=== PATIENT | female | born 1950 | race Caucasian/White ===

== ENCOUNTER 2018-12-19 20:08 | Inpatient (IN) | payer MEDICARE, OTHER | END 2018-12-28 19:10 | disposition home or self-care (01) | LOC: TELE-WESTW 20:08 | DX: I63.40 Cerebral infarction due to embolism of unspecified cerebral artery (principal); I26.99 Other pulmonary embolism without acute cor pulmonale; J96.91 Respiratory failure, unspecified with hypoxia; K90.9 Intestinal malabsorption, unspecified; R60.1 Generalized edema; E77.8 Other disorders of glycoprotein metabolism; E88.09 Other disorders of plasma-protein metabolism, not elsewhere classified; K27.9 Peptic ulcer, site unspecified, unspecified as acute or chronic, without hemorrhage or perforation; D50.9 Iron deficiency anemia, unspecified; I50.9 Heart failure, unspecified; I11.0 Hypertensive heart disease with heart failure; E66.09 Other obesity due to excess calories ==

== ENCOUNTER 2019-01-24 21:55 | Inpatient (IN) | payer MEDICARE, OTHER ==
[~2019-01-24] VITALS: Ht 168.9 cm; Wt 48.9 kg
[~2019-01-24 21:55] MED LIST: FERR-20 PO; GABA600T PO; METO-281 PO; ONDA4TAB5 PO; OXY5T PO; PANT40TA2 PO; TIZA4CAP PO; TORS20TA20 PO
[2019-01-24] MEDS ORDERED: ACETAMINOPHEN 325 MG TAB PO PRN (22:00)
[2019-01-24] MEDS ORDERED: MORPHINE SULF INJ 2 MG/ML SYRINGE 1ML IV PRN (22:00)
[2019-01-24] MEDS ORDERED: TEMAZEPAM 15 MG CAP PO PRN (22:00)
[2019-01-24] MEDS ORDERED: GABAPENTIN PO SCH (22:00)
[2019-01-24] MEDS ORDERED: DOCUSATE SOD 100 MG CAP PO PRN (22:00)
[2019-01-24] MEDS ORDERED: POTASSIUM CHL 20MEQ/100ML 100 ML IV PRN (22:00)
[2019-01-24] MEDS ORDERED: ALBUMIN 25% 50 ML IV ONE (22:00)
[2019-01-24] MEDS ORDERED: ALUM & MAG HYDROX-SIMETH LIQ(MAALOX) 30 ML PO PRN (22:00)
[2019-01-24] MEDS ORDERED: NITROGLYCERIN 0.4 MG SL TAB SL PRN (22:00)
--- NOTE | 2019-01-24 22:20 | NUR ---
Direct Admit Note JANNYKARINE admitted to Telemetry unit as a direct admit per MD order. Patient oriented to primary RN, unit, room, bed, and unit policies regarding patient care and visiting hours. Patient now on continuous telemetry monitoring, tele box #[id number] and telemetry reading on arrival to unit is Sinus rhythm 64. Patient weighed by bedscale and encouraged to call if they need something. All questions and concerns addressed, patient verbalized understanding. MD Nance at the nurses station aware of patient's arrival and admit orders received.
[2019-01-24 23:00] VITALS: BP 95/59
--- NOTE | 2019-01-24 23:00 | NUR ---
MRSA SWAB DONE AND SENT TO LAB VIA BULLET.
[2019-01-24 23:01] LABS: Basophils # (auto) 0.1 uL; Basophils % (auto) 1.1 % (0.0-2.0); Eosinophils # (auto) 0.2 uL; Eosinophils % (auto) 3.7 % (0.0-7.0); Hematocrit 29.5 % (36.0-46.0); Hemoglobin 9.4 g/dL (12.2-16.2); Lymphocytes # (auto) 1.2 uL; Lymphocytes % (auto) 19.9 % (10.0-50.0); Mean Corpuscular Hemoglobin 28.8 pg (28.0-32.0); Mean Corpuscular Volume 89.8 fL (80.0-100.0); Monocytes # (auto) 0.8 uL; Monocytes % (auto) 12.6 % (0.0-12.0); Neutrophils # (auto) 3.8 uL; Neutrophils % (auto) 62.7 % (37.0-80.0); Nucleated Red Blood Cells % 0.1 %; Platelet Count (auto) 329 10^3/uL (140-450); Red Blood Cells 3.28 10^6/uL (4.0-5.20); Red Cell Distribution Width 15.5 % (11.8-14.3); White Blood Cell 6.1 10^3/uL (4.4-10.8)
[2019-01-24 23:08] VITALS: BP 82/53
[2019-01-24 23:14] LABS: Anion Gap 5 (5-15); BUN/Creatinine Ratio 40.4; Blood Urea Nitrogen 19 mg/dL (7-18); Calcium 7.1 mg/dL (8.5-10.1); Carbon Dioxide 31 mmol/L (21-32); Chloride 101 mmol/L (98-107); GFR African American 171 mL/min; GFR Non-African American 141 mL/min; Glucose 90 mg/dL (74-106); Potassium 3.4 mmol/L (3.5-5.1); Sodium 137 mmol/L (136-145)
--- NOTE | 2019-01-24 23:15 | NUR ---
Patient's BP at 82/53 HR 69. Pt's respiration even and unlabored. No non verbal cues to pain such as grimacing, moaning and crying, however, patient is requesting for Dilaudid for "severe pain to thoracic and cervical area" Informed patient that per Dr. Nance's notes, only able to administer Dilaudid if SBP is >90. Per patient "My body is used to it even if my blood pressure is low" Educated patient on risk and benefits and nurse following on Dr's orders. Kept patient's BLE slightly elevated, assisted in repositioning and will recheck blood pressure at a later time.
--- NOTE | 2019-01-24 23:30 | NUR ---
Patient requesting again to have her Dilaudid at this time. BP at 95/48. Informed patient, I will recheck BP again after 30 minutes or less to be safe. Per patient "Why do you have to recheck it is already more than 90, you can give me my Dilaudid now?" Rechecked BP at 85/50. Patient repositioning self in the bed and transferred to bedside commode with sba, no facial grimacing or guarding noted and observed. Informed patient there is a routine Oxycodone medication at 0000h to help with her pain. Patient verbalized understanding. Will continue to monitor.
[2019-01-24] MEDS: SODIUM CHLOR 0.9% PF (SALINE LOCK) 10ML VIAL/SYR IV SCH (23:55)
[2019-01-25] MEDS ORDERED: ALBUMIN 25% 50 ML IV SCH
[2019-01-25] MEDS: OXYCODONE HCL 5MG TAB PO SCH ×4 (00:54→18:09)
--- NOTE | 2019-01-25 03:23 | NUR ---
PT'S BP 132/72 COMPLAINING OF BACK AND NECK PAIN. WILL ADMINISTER PAIN MEDICATION REQUESTED AND ORDERED.
[2019-01-25] MEDS: HYDROmorphone HCL 2 MG/ML VL IV PRN ×5 (03:25→21:42)
[2019-01-25 05:00] VITALS: BP 138/69
[2019-01-25] MEDS: GABAPENTIN 300 MG CAP PO SCH ×3 (05:59→21:42)
[2019-01-25] MEDS: SODIUM CHLOR 0.9% PF (SALINE LOCK) 10ML VIAL/SYR IV SCH ×3 (06:00→21:55)
[2019-01-25] MEDS: FUROSEMIDE 40 MG/4 ML VIAL IV SCH ×2 (06:21→18:07)
--- NOTE | 2019-01-25 06:37 | NUR ---
PRILOSEC NOT AVAILABLE ON THE FLOOR, CALLED FRANCISCO/PHARMACY. PER FRANCISCO, WILL SEND MEDICATION VIA BULLET IN A FEW MINUTES.
[2019-01-25] MEDS: METOCLOPRAMIDE HCL 5MG/ml INJ 2ml VIAL IV SCH ×3 (07:08→17:23)
[2019-01-25] MEDS: OMEPRAZOLE 20MG/10ML ORAL SUSP PO SCH (07:09)
[2019-01-25] MEDS ORDERED: PATIENTS OWN MEDICATION (Ferrous Sulfate 325 MG) PO SCH (08:00)
[2019-01-25] MEDS: FERROUS SULFATE 325 MG TAB PO SCH ×2 (08:42→18:10)
[2019-01-25 09:00] VITALS: BP 120/71
[2019-01-25] MEDS: ALBUMIN 25% 50 ML IV SCH ×2 (09:05→16:16)
[2019-01-25] MEDS: ONDANSETRON HCL 4 MG/2 ML VIAL IV PRN ×2 (11:17→18:52)
[2019-01-25 14:00] VITALS: BP 134/76
[2019-01-25] MEDS: TIZANIDINE 4 MG PO SCH ×2 (14:00→21:56)
[2019-01-25 17:54] VITALS: BP 127/67
--- NOTE | 2019-01-25 19:30 | NUR ---
Opening Shift Note Assumed care of patient, awake and alert. Patient is currently on room air with No S/S of distress/SOB. Reports 7/10 pain to upper back and neck. Pain management options discussed with patient. Instructed on POC and to call for assist PRN, will continue to monitor for changes Q1hr and PRN.
[2019-01-25 22:00] VITALS: BP 157/83
[2019-01-26] VITALS (8 sets, daily range): BP systolic 121–133; BP diastolic 64–84
[2019-01-26] MEDS: OXYCODONE HCL 5MG TAB PO SCH ×4 (00:14→18:26)
[2019-01-26] MEDS: ALBUMIN 25% 50 ML IV SCH (00:22)
[2019-01-26] MEDS: ONDANSETRON HCL 4 MG/2 ML VIAL IV PRN ×3 (01:52→22:08)
[2019-01-26] MEDS: HYDROmorphone HCL 2 MG/ML VL IV PRN ×5 (01:53→22:09)
[2019-01-26] MEDS: TIZANIDINE 4 MG PO SCH ×3 (05:30→21:51)
[2019-01-26 05:57] LABS: Basophils # (auto) 0 uL; Eosinophils # (auto) 0.1 uL; Hemoglobin 8.4 g/dL (12.2-16.2); Mean Corpuscular Hgb Conc. 32.2 g/dL (32.0-36.0); Monocytes # (auto) 0.7 uL
[2019-01-26] MEDS: OMEPRAZOLE 20MG/10ML ORAL SUSP PO SCH ×2 (06:00→06:47)
[2019-01-26 06:02] LABS: Basophils % (auto) 0.9 % (0.0-2.0); Eosinophils % (auto) 1.8 % (0.0-7.0); Hematocrit 26.1 % (36.0-46.0); Lymphocytes # (auto) 0.9 uL; Lymphocytes % (auto) 17.4 % (10.0-50.0); Mean Corpuscular Hemoglobin 28.7 pg (28.0-32.0); Monocytes % (auto) 14.6 % (0.0-12.0); Neutrophils # (auto) 3.3 uL; Neutrophils % (auto) 65.3 % (37.0-80.0); Nucleated Red Blood Cells % 0.1 %; Platelet Count (auto) 309 10^3/uL (140-450); Red Blood Cells 2.94 10^6/uL (4.0-5.20); Red Cell Distribution Width 15.3 % (11.8-14.3)
[2019-01-26] MEDS: FUROSEMIDE 40 MG/4 ML VIAL IV SCH ×2 (06:08→18:25)
[2019-01-26] MEDS: SODIUM CHLOR 0.9% PF (SALINE LOCK) 10ML VIAL/SYR IV SCH ×3 (06:08→22:16)
[2019-01-26] MEDS: GABAPENTIN 300 MG CAP PO SCH ×3 (06:09→22:10)
[2019-01-26 06:20] LABS: Chloride 106 mmol/L (98-107); Potassium 3.9 mmol/L (3.5-5.1); Sodium 141 mmol/L (136-145)
[2019-01-26 06:26] LABS: Alanine Aminotransferase 15 U/L (13-56); Albumin 1.9 g/dL (3.4-5.0); Alkaline Phosphatase 61 U/L (45-117); Anion Gap 7 (5-15); Aspartate Aminotransferase 13 U/L (15-37); BUN/Creatinine Ratio 26.5; Bilirubin, Total < 0.1 mg/dL (0.2-1.0); Blood Urea Nitrogen 13 mg/dL (7-18); Calcium 7.5 mg/dL (8.5-10.1); Carbon Dioxide 28 mmol/L (21-32); GFR African American 162 mL/min; GFR Non-African American 134 mL/min; Glucose 93 mg/dL (74-106); Total Protein 3.9 g/dL (6.4-8.2)
[2019-01-26] MEDS: METOCLOPRAMIDE HCL 5MG/ml INJ 2ml VIAL IV SCH ×3 (06:48→17:54)
[2019-01-26] MEDS: FERROUS SULFATE 325 MG TAB PO SCH ×2 (08:00→18:11)
--- NOTE | 2019-01-26 19:45 | NUR ---
OPENING SHIFT NOTE Assumed care of patient. A&O x4. Currently on room air with no s/s of SOB or distress. Patient reports 6/10 pain at this time, which she states is tolerable for her. Patient ambulates independently to the bedside commode. POC discussed with patient, who verbalizes understanding. Bed left in low locked position and side rails up x2. Call gilmore is within reach. Patient encouraged to call for assistance when needed. Will continue to monitor PRN.
[2019-01-26] MEDS: FAMOTIDINE 20 MG TAB PO SCH (22:09)
[2019-01-27] MEDS: OXYCODONE HCL 5MG TAB PO PRN ×4 (00:37→21:16)
[2019-01-27] MEDS: HYDROmorphone HCL 2 MG/ML VL IV PRN ×4 (02:20→19:51)
[2019-01-27] MEDS: ONDANSETRON HCL 4 MG/2 ML VIAL IV PRN ×4 (02:20→19:51)
[2019-01-27 05:00] VITALS: BP 106/59
[2019-01-27] MEDS: TIZANIDINE 4 MG PO SCH ×3 (06:00→21:40)
[2019-01-27] MEDS: GABAPENTIN 300 MG CAP PO SCH ×3 (06:07→21:16)
[2019-01-27] MEDS: FUROSEMIDE 40 MG/4 ML VIAL IV SCH ×2 (06:08→17:58)
[2019-01-27] MEDS: SODIUM CHLOR 0.9% PF (SALINE LOCK) 10ML VIAL/SYR IV SCH ×3 (06:19→21:17)
[2019-01-27] MEDS: METOCLOPRAMIDE HCL 5MG/ml INJ 2ml VIAL IV SCH ×3 (06:25→17:57)
--- NOTE | 2019-01-27 08:00 | NUR ---
Opening Shift Note Assumed care of patient, awake and alert. No S/S of distress/SOB. Patient has chronic pain. Instructed on POC and to call for assist PRN, will continue to monitor for changes Q1hr and PRN.
[2019-01-27] MEDS: FERROUS SULFATE 325 MG TAB PO SCH ×2 (08:11→17:58)
[2019-01-27 08:34] VITALS: BP 109/76
[2019-01-27] MEDS: FAMOTIDINE 20 MG TAB PO SCH ×2 (10:27→21:15)
--- NOTE | 2019-01-27 11:07 | NUR ---
Nutrition Assessment Notes please see attached link for complete assessment Est. Needs BW [id number] kcal (25-30 kcal/kgBW), 53-69 gms pro (1.0-1.3 gms/kgBW). Will continue to monitor pertinent labs and reassess nutrient need prn Addendum: 01/27/19 at [address] Amended: Links added.
[2019-01-27 12:38] VITALS: BP 123/61
[2019-01-27 16:13] VITALS: BP 123/73
--- NOTE | 2019-01-27 19:30 | NUR ---
Opening Shift Note Assumed care of patient, awake and alert. No S/S of distress/SOB but c/o 8/10 pain, will medicate per md order. Bed locked in lowest position, side rails upx2, call light within reach. Instructed on POC and to call for assist PRN, will continue to monitor for changes Q1hr and PRN.
[2019-01-27 22:06] VITALS: BP 137/68
[2019-01-28] VITALS (10 sets, daily range): BP systolic 106–123; BP diastolic 59–83
[2019-01-28] MEDS: HYDROmorphone HCL 2 MG/ML VL IV PRN ×6 (00:02→20:02)
[2019-01-28] MEDS: ONDANSETRON HCL 4 MG/2 ML VIAL IV PRN ×6 (00:02→20:02)
--- NOTE | 2019-01-28 02:30 | NUR ---
DR. SU AT BEDSIDE DISCUSSING POC WITH PATIENT.
[2019-01-28] MEDS: OXYCODONE HCL 5MG TAB PO PRN ×3 (03:23→17:11)
[2019-01-28] MEDS: TIZANIDINE 4 MG PO SCH ×3 (06:00→21:36)
[2019-01-28] MEDS: FUROSEMIDE 40 MG/4 ML VIAL IV SCH ×2 (06:17→18:09)
[2019-01-28] MEDS: SODIUM CHLOR 0.9% PF (SALINE LOCK) 10ML VIAL/SYR IV SCH ×3 (06:17→21:36)
[2019-01-28] MEDS: GABAPENTIN 300 MG CAP PO SCH ×3 (06:17→21:36)
[2019-01-28] MEDS: METOCLOPRAMIDE HCL 5MG/ml INJ 2ml VIAL IV SCH ×3 (06:17→17:40)
[2019-01-28 06:44] LABS: Basophils # (auto) 0.1 uL; Eosinophils # (auto) 0.3 uL; Hemoglobin 8.3 g/dL (12.2-16.2); Lymphocytes # (auto) 0.9 uL; Mean Corpuscular Volume 89.6 fL (80.0-100.0); Monocytes # (auto) 0.8 uL; White Blood Cell 5.6 10^3/uL (4.4-10.8)
[2019-01-28 06:48] LABS: Basophils % (auto) 1.1 % (0.0-2.0); Eosinophils % (auto) 5.7 % (0.0-7.0); Hematocrit 25.6 % (36.0-46.0); Lymphocytes % (auto) 15.9 % (10.0-50.0); Mean Corpuscular Hemoglobin 29.1 pg (28.0-32.0); Mean Corpuscular Hgb Conc. 32.4 g/dL (32.0-36.0); Monocytes % (auto) 14.2 % (0.0-12.0); Neutrophils # (auto) 3.5 uL; Neutrophils % (auto) 63.1 % (37.0-80.0); Platelet Count (auto) 268 10^3/uL (140-450); Red Blood Cells 2.85 10^6/uL (4.0-5.20); Red Cell Distribution Width 15.8 % (11.8-14.3)
[2019-01-28] MEDS: FERROUS SULFATE 325 MG TAB PO SCH ×2 (08:57→17:11)
[2019-01-28] MEDS: FAMOTIDINE 20 MG TAB PO SCH ×2 (08:57→21:36)
[2019-01-28] MEDS: CYCLOBENZAPRINE HCL 10 MG TAB PO PRN ×2 (10:16→17:11)
--- NOTE | 2019-01-28 15:30 | NUR ---
Dr Nance at bedside Explaining risks and benefits of 1 unit of blood transfusion. Patient verbalizes understanding.
--- NOTE | 2019-01-28 19:30 | NUR ---
Opening Shift Note Assumed care of patient, awake and alert. No S/S of distress/SOB or pain. Patient transfusing 1 unit of blood at 125 ml/hr. Bed locked in lowest position, side rails upx2, call light within reach. Instructed on POC and to call for assist PRN, will continue to monitor for changes Q1hr and PRN.
--- NOTE | 2019-01-28 21:50 | NUR ---
BLOOD TRANSFUSION COMPLETE VITALS: 98.5, HR 77, O2 93%, RR 18, BP 107/68. PATIENT TOLERATED WELL, NO SIGNS OR REACTION. WILL CONTINUE TO MONITOR.
[2019-01-29] MEDS: OXYCODONE HCL 5MG TAB PO PRN ×3 (00:48→14:29)
[2019-01-29] MEDS: HYDROmorphone HCL 2 MG/ML VL IV PRN ×4 (04:29→16:27)
[2019-01-29] MEDS: ONDANSETRON HCL 4 MG/2 ML VIAL IV PRN ×4 (04:30→16:26)
[2019-01-29 04:50] VITALS: BP 112/66
[2019-01-29] MEDS: TIZANIDINE 4 MG PO SCH ×2 (06:00→14:00)
[2019-01-29] MEDS: FUROSEMIDE 40 MG/4 ML VIAL IV SCH ×2 (06:21→17:49)
[2019-01-29] MEDS: METOCLOPRAMIDE HCL 5MG/ml INJ 2ml VIAL IV SCH ×3 (06:22→17:49)
[2019-01-29] MEDS: SODIUM CHLOR 0.9% PF (SALINE LOCK) 10ML VIAL/SYR IV SCH ×2 (06:22→14:30)
[2019-01-29] MEDS: GABAPENTIN 300 MG CAP PO SCH ×2 (06:22→14:28)
[2019-01-29 07:20] LABS: Alanine Aminotransferase 13 U/L (13-56); Albumin 1.4 g/dL (3.4-5.0); Anion Gap 10 (5-15); Aspartate Aminotransferase 11 U/L (15-37); Blood Urea Nitrogen 18 mg/dL (7-18); Calcium 7.1 mg/dL (8.5-10.1); Carbon Dioxide 27 mmol/L (21-32); Chloride 106 mmol/L (98-107); GFR African American 179 mL/min; GFR Non-African American 148 mL/min; Glucose 87 mg/dL (74-106); Potassium 3.7 mmol/L (3.5-5.1); Sodium 143 mmol/L (136-145)
[2019-01-29 07:22] LABS: Alkaline Phosphatase 62 U/L (45-117); Bilirubin, Total 0.2 mg/dL (0.2-1.0); Total Protein 3.9 g/dL (6.4-8.2)
--- NOTE | 2019-01-29 07:48 | NUR ---
Opening Shift Note Assumed care of patient, awake and alert. No S/S of distress/SOB or pain. Instructed on POC and to call for assist PRN, will continue to monitor for changes Q1hr and PRN.
[2019-01-29 08:30] VITALS: BP 122/77
[2019-01-29] MEDS: FERROUS SULFATE 325 MG TAB PO SCH ×2 (08:56→17:50)
[2019-01-29] MEDS: FAMOTIDINE 20 MG TAB PO SCH (10:07)
[2019-01-29] MEDS: CYCLOBENZAPRINE HCL 10 MG TAB PO PRN (10:07)
[2019-01-29 10:24] LABS: Alanine Aminotransferase 15 U/L (13-56); Albumin 1.5 g/dL (3.4-5.0); Anion Gap 9 (5-15); Aspartate Aminotransferase 10 U/L (15-37); BUN/Creatinine Ratio 36.2; Blood Urea Nitrogen 17 mg/dL (7-18); Calcium 7.2 mg/dL (8.5-10.1); Carbon Dioxide 28 mmol/L (21-32); Chloride 103 mmol/L (98-107); GFR African American 171 mL/min; GFR Non-African American 141 mL/min; Glucose 105 mg/dL (74-106); Potassium 3.7 mmol/L (3.5-5.1); Sodium 140 mmol/L (136-145)
[2019-01-29 10:27] LABS: Alkaline Phosphatase 64 U/L (45-117); Bilirubin, Total < 0.1 mg/dL (0.2-1.0)
[2019-01-29 13:39] VITALS: BP 102/60
[2019-01-29 15:17] LABS: Basophils # (auto) 0 uL; Basophils % (auto) 0.8 % (0.0-2.0); Eosinophils # (auto) 0.3 uL; Eosinophils % (auto) 6.4 % (0.0-7.0); Hematocrit 33.7 % (36.0-46.0); Hemoglobin 10.8 g/dL (12.2-16.2); Lymphocytes # (auto) 1.1 uL; Mean Corpuscular Hemoglobin 28.8 pg (28.0-32.0); Mean Corpuscular Hgb Conc. 32.1 g/dL (32.0-36.0); Mean Corpuscular Volume 89.5 fL (80.0-100.0); Monocytes # (auto) 0.7 uL; Monocytes % (auto) 13.8 % (0.0-12.0); Platelet Count (auto) 339 10^3/uL (140-450); Red Blood Cells 3.77 10^6/uL (4.0-5.20); Red Cell Distribution Width 15.7 % (11.8-14.3); White Blood Cell 5.1 10^3/uL (4.4-10.8)
--- NOTE | 2019-01-29 19:55 | NUR ---
Discharge instructions given as ordered. Encourage to follow up with PMD as instructed. All questions and concerns addressed. Patient verbalized understanding. Medication reconciliation form completed and copy given to patient. Home medications held in Pharmacy returned to patient. IV removed with catheter intact, pressure dressing applied. Telemetry unit returned to ICU. Patient taken to vehicle via wheelchair with all personal belongings, accompanied by staff and family member. No distress noted at time of departure. Unable to complete appointments, due to PCP being closed. Patient is aware to make appointment, and follow up with dr vinson.
== END 2019-01-29 20:00 | disposition home or self-care (01) | DRG 314 ==
LOC: TELE-WESTW 22:11
PROVIDERS: ADMIT Specialist; ATTEND Specialist
PROC: 30233N1 Transfusion of Nonautologous Red Blood Cells into Peripheral Vein, Percutaneous Approach (ICD-10-PCS; principal; 2019-01-28)
DX: I95.9 Hypotension, unspecified (principal); K83.1 Obstruction of bile duct; F11.20 Opioid dependence, uncomplicated; J98.11 Atelectasis; D50.9 Iron deficiency anemia, unspecified; E77.8 Other disorders of glycoprotein metabolism; E88.09 Other disorders of plasma-protein metabolism, not elsewhere classified; K76.9 Liver disease, unspecified; I70.8 Atherosclerosis of other arteries; E86.9 Volume depletion, unspecified; D51.9 Vitamin B12 deficiency anemia, unspecified; K59.00 Constipation, unspecified; K57.30 Diverticulosis of large intestine without perforation or abscess without bleeding; R09.02 Hypoxemia; G89.29 Other chronic pain; Z96.652 Presence of left artificial knee joint; Z87.11 Personal history of peptic ulcer disease; Z88.8 Allergy status to other drugs, medicaments and biological substances
CPT/HCPCS: 36415; 71046; 80048; 80053; 84484; 85025; 86850; 86900; 86901; 86920; 87081; G0378; J2405; J3480

== ENCOUNTER 2024-05-30 16:26 | Inpatient (IN) | payer MEDICARE ==
[~2024-05-30] VITALS: Ht 167.6 cm; Wt 78.6 kg
[~2024-05-30 16:26] MED LIST changes: -FERR-20 PO; +FERR325T24 PO; +ONDA-144 PO; -ONDA4TAB5 PO
[2024-05-30 16:45] VITALS: BP 112/40; PULSE 47; RESP 17; TEMP 98; O2SAT 99
[2024-05-30] MEDS ORDERED: TIZA-142 PO (17:13)
[2024-05-30] MEDS ORDERED: VALS1TAB58 PO (17:13)
[2024-05-30] MEDS ORDERED: METO25TA93 PO (17:13)
[2024-05-30] MEDS ORDERED: GABA-339 PO (17:13)
[2024-05-30] MEDS ORDERED: METO5TAB2 PO (17:15)
[2024-05-30] MEDS ORDERED: PARO10TA93 PO (17:25)
[2024-05-30] MEDS ORDERED: PARO-181 ×2 (17:27→17:28)
[2024-05-30] MEDS ORDERED: NITROGLYCERIN 0.4 MG SL TAB SL PRN (19:15)
[2024-05-30] MEDS ORDERED: MORPHINE SULFATE INJ 2 MG/ml SYRG IV PRN (19:15)
[2024-05-30] MEDS ORDERED: FUROSEMIDE INJECTION 100 MG in SODIUM CHL 0.9% 100 ML IV SCH (19:30)
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
[2024-05-30 20:00] VITALS: PULSE 109; PULSE 65; RESP 18; O2SAT 99
[2024-05-30] MEDS: FUROSEMIDE 20 MG/2 ML VIAL IV ONE (20:00)
[2024-05-30] MEDS ORDERED: OXYCODONE W/ ACETAMINOPHEN 5/325MG TABLET PO PRN (20:45)
[2024-05-30] MEDS ORDERED: HYDROmorphone HCL 2 MG/ML VL/or syr IV PRN (20:45)
[2024-05-30 21:00] VITALS: BP 158/64; PULSE 59; RESP 20; TEMP 98; O2SAT 99
[2024-05-30] MEDS: METOCLOPRAMIDE HCL 10 MG TAB PO ONE (21:00)
[2024-05-30 21:06] LABS: Basophils # (auto) 0 10 ^3/uL (0-0.2); Basophils % (auto) 0.2 % (0.0-2.0); Eosinophils # (auto) 0.1 10 ^3/uL (0-0.8); Eosinophils % (auto) 0.8 % (0.0-7.0); Hematocrit 30.5 % (36.0-46.0); Hemoglobin 10.1 g/dL (12.2-16.2); Lymphocytes # (auto) 0.7 10 ^3/uL (0.4-5.4); Lymphocytes % (auto) 8.8 % (10.0-50.0); Mean Corpuscular Hgb Conc. 33.1 g/dL (32.0-36.0); Mean Corpuscular Volume 90.7 fL (80.0-100.0); Monocytes # (auto) 0.5 10 ^3/uL (0-1.3); Monocytes % (auto) 6.3 % (0.0-12.0); Neutrophils # (auto) 6.4 10 ^3/uL (1.6-8.6); Neutrophils % (auto) 83.9 % (37.0-80.0); Platelet Count (auto) 364 10^3/uL (140-450); Red Blood Cells 3.36 10^6/uL (4.0-5.20); Red Cell Distribution Width 14.8 % (11.8-14.3); White Blood Cell 7.6 10^3/uL (4.4-10.8)
[2024-05-30] MEDS: OXYCODONE W/ ACETAMINOPHEN 5/325MG TABLET ONE (21:09)
[2024-05-30 21:24] LABS: Alanine Aminotransferase 18 U/L (7-40); Albumin 2.5 g/dL (3.2-4.8); Alkaline Phosphatase 177 U/L (46-116); Amylase 20 U/L (30-118); Anion Gap 3 (5-15); Aspartate Aminotransferase 16 U/L (13-40); BUN/Creatinine Ratio 28.6 (10.0-20.0); Blood Urea Nitrogen 12 mg/dL (9-23); Calcium 8.2 mg/dL (8.7-10.4); Carbon Dioxide 32 mmol/L (20-31); Chloride 96 mmol/L (98-107); Glucose 97 mg/dL (74-106); Phosphorus 3.3 mg/dL (2.4-5.1); Potassium 3.6 mmol/L (3.5-5.1); Sodium 131 mmol/L (136-145)
[2024-05-30 21:25] LABS: Bilirubin, Total < 0.2 mg/dL (0.2-1.0); Total Protein 4.3 g/dL (5.7-8.2)
[2024-05-30] MEDS: ALBUMIN 25% 100 ML IV SCH (21:58)
[2024-05-30] MEDS ORDERED: METOCLOPRAMIDE HCL 10 MG TAB PO SCH (22:00)
[2024-05-30] MEDS: HYDROmorphone HCL 2 MG/ML VL/or syr IV PRN (22:01)
[2024-05-30] MEDS: GABAPENTIN 300 MG CAP PO SCH (22:02)
[2024-05-30 22:09] LABS: Lipase 25 U/L (12-53)
[2024-05-31] VITALS (9 sets, daily range): BP systolic 105–184; BP diastolic 45–93; PULSE 69–89; RESP 17–18; TEMP 97.5–98.7; O2SAT 91–96
[2024-05-31] MEDS: oxyCODONE HCL 5MG TAB PO SCH (00:15)
[2024-05-31] MEDS: FUROSEMIDE 20 MG/2 ML VIAL IV SCH ×2 (06:03→13:31)
[2024-05-31] MEDS: METOCLOPRAMIDE HCL 10 MG TAB PO SCH (06:03)
[2024-05-31 07:33] LABS: Basophils # (auto) 0 10 ^3/uL (0-0.2); Basophils % (auto) 0.6 % (0.0-2.0); Eosinophils # (auto) 0 10 ^3/uL (0-0.8); Eosinophils % (auto) 0.6 % (0.0-7.0); Hematocrit 31.8 % (36.0-46.0); Hemoglobin 10.2 g/dL (12.2-16.2); Lymphocytes # (auto) 1.2 10 ^3/uL (0.4-5.4); Lymphocytes % (auto) 14.6 % (10.0-50.0); Mean Corpuscular Hemoglobin 29.6 pg (28.0-32.0); Mean Corpuscular Hgb Conc. 32.1 g/dL (32.0-36.0); Mean Corpuscular Volume 92.1 fL (80.0-100.0); Monocytes % (auto) 12.7 % (0.0-12.0); Neutrophils # (auto) 5.8 10 ^3/uL (1.6-8.6); Neutrophils % (auto) 71.5 % (37.0-80.0); Nucleated Red Blood Cells % 0.2 %; Platelet Count (auto) 442 10^3/uL (140-450); Red Blood Cells 3.46 10^6/uL (4.0-5.20); Red Cell Distribution Width 14.7 % (11.8-14.3); White Blood Cell 8.1 10^3/uL (4.4-10.8)
[2024-05-31 07:37] LABS: Alanine Aminotransferase 16 U/L (7-40); Alkaline Phosphatase 161 U/L (46-116); Anion Gap 8 (5-15); Aspartate Aminotransferase 16 U/L (13-40); Blood Urea Nitrogen 10 mg/dL (9-23); Calcium 8.5 mg/dL (8.7-10.4); Carbon Dioxide 26 mmol/L (20-31); Chloride 100 mmol/L (98-107); Glucose 94 mg/dL (74-106); Potassium 3.7 mmol/L (3.5-5.1); Sodium 134 mmol/L (136-145)
[2024-05-31 07:38] LABS: Albumin 2.9 g/dL (3.2-4.8); Bilirubin, Total < 0.2 mg/dL (0.2-1.0); Total Protein 4.7 g/dL (5.7-8.2)
[2024-05-31] MEDS: FERROUS SULFATE 325mg EC TAB PO SCH (07:56)
[2024-05-31] MEDS: VALSARTAN 80 MG TAB PO SCH (07:56)
[2024-05-31] MEDS: PARoxetine 20 MG TAB PO SCH (07:57)
[2024-05-31] MEDS: PANTOPRAZOLE 40 MG TAB PO SCH (08:02)
[2024-05-31] MEDS ORDERED: PATIENTS OWN MEDICATION (Paroxetine Hydrochloride 1 TAB) PO SCH (10:00)
[2024-05-31] MEDS ORDERED: PARoxetine 20 MG TAB PO SCH (10:00)
--- NOTE | 2024-05-31 10:20 | DVH ---
XY CHEST TWO VIEWS ROUTINE CLINICAL HISTORY: R/O PNEUMONIA COMPARISON: None TECHNIQUE: Frontal and lateral view of the chest was obtained FINDINGS: Lines and Tubes: None Lungs: No focal consolidation. Pleura: No effusion. No pneumothorax. Cardiomediastinal contours: Unremarkable Bones: No acute osseous abnormality. IMPRESSION: No acute cardiopulmonary disease. Elevated left hemidiapgragm
[2024-05-31] MEDS: ONDANSETRON HCL 4 MG/2 ML VIAL IV PRN (11:13)
[2024-05-31] MEDS ORDERED: FUROSEMIDE 20 MG/2 ML VIAL IV SCH (13:00)
--- NOTE | 2024-05-31 13:05 | DVHPN2 ---
Progress Note - Dictate Date Seen: May 31, 2024 Subjective anasarca Urine out put 400 ml cont IV albumin and Lasix ordered 2 D echo vital signs Vital Sign Date Time Temp Pulse Resp B/P (MAP) Pulse Ox O2 Delivery O2 Flow Rate FiO2 05/31/24 12:00 79 171/93 (119) 05/31/24 09:00 98.7 17 95 98.7 05/31/24 08:05 Room Air* 0 21 Total Intake and Output 05/30/24 05/30/24 05/31/24 15:00 23:00 07:00 Intake Total 460 ml 240 ml Output Total 400 ml Balance 460 ml -160 ml medications Current Medications Medications Dose Ordered Sig/Ran Route Start Time Stop Time Status Last Admin Dose Admin Nitroglycerin 0.4 mg Q5MINP PRN SL 05/30/24 19:15 Morphine Sulfate 2 mg Q30M PRN IV 05/30/24 19:15 Oxycodone HCl 20 mg Q6HR PO 05/31/24 00:00 05/31/24 12:16 20 MG Pantoprazole Sodium 40 mg DAILY PO 05/31/24 10:00 05/31/24 08:02 40 MG Ferrous Sulfate 325 mg BIDWM PO 05/31/24 08:00 05/31/24 07:56 325 MG Gabapentin 60 mg TID PO 05/30/24 22:00 05/31/24 06:03 60 MG Metoclopramide HCl 5 mg TIDAC PO 05/31/24 07:00 05/31/24 11:19 5 MG Patient Own Medication 1 cap TID PO 05/30/24 22:00 Valsartan 160 mg DAILY PO 05/31/24 10:00 05/31/24 07:56 160 MG Albumin Human 100 ml @ 25 mls/hr Q12H IV 05/30/24 19:30 05/31/24 23:29 05/31/24 08:02 25 MLS/HR Furosemide 100 mg/ Sodium Chloride 110 ml @ 5.5 mls/hr Q20H IV 05/30/24 19:30 Cancel Paroxetine HCl 40 mg DAILY PO 05/31/24 10:00 05/31/24 07:57 40 MG Oxycodone/ Acetaminophen 1 tab Q4HPRN PRN PO 05/30/24 20:45 Hydromorphone HCl 0.6 mg Q4HP PRN IV 05/30/24 20:45 Hydromorphone HCl 1 mg Q4HP PRN IV 05/30/24 20:45 05/31/24 07:56 1 MG Ondansetron HCl 4 mg Q4HPRN PRN IV 05/31/24 11:00 05/31/24 11:13 4 MG Furosemide 20 mg BIDD IV 05/31/24 13:00 UNV Clonidine HCl 0.2 mg BID PO 05/31/24 22:00 UNV objective GENERAL APPEARANCE: well-nourished white female with kyphoscoliosis appears to be mildly short of breath. HEENT: Head normocephalic nontraumatic Eyes-EOMI, PERRLA, conjunctiva -pallor + 1, sclera nonicteric ENT-no congestion in ear, nose and throat Tongue and mucous membranes well hydrated NECK: Supple, trachea midline , carotid upstroke +2 No thyroid or lymph node enlargement, no use of accessory muscles, ROM at C-spine full CHEST: Symmetrical expansions, kyphoscoliosis hypoventilation at bases RS: Clear breath sounds bilaterally except Reduced breath sounds at bilateral bases CVS: S1-S2 normal sinus no gallop no murmur : Abdomen soft, obese, bowel sounds present No focal tenderness, no masses no hernia EXTs: Distal pulses +2, no rash, anasarca affecting bilateral lower extremity capillary refill instant, Feels peripherally warm SKIN: No rash, no open wounds PLANOGRAMMER: awake alert oriented 3, cognitive intact DTR +2, No focal motor/sensory deficit, gait steady laboratory and microbiology Laboratory Tests 05/31/24 06:13 Test 05/31/24 06:13 Range/Units Serum Glucose 94 74-106 mg/dL Problem List Recurrence of anasarca from: A. Hypoproteinemia. B. Hypoalbuminemia. C. Intrinsic liver disease. D failure to oral diuretics Admitting Diagnosis: 1. Hypotension a. Intravascular volume depletion b. Hypoproteinemia 2. 2. Intrinsic liver disease and cholestasis from: A. Dilated common bile duct. 3. 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 4. History of peptic ulcer disease. 5. Status post Billroth type 2 surgery. 6. Vitamin B12 deficiency anemia. 7. Chronic narcotic dependence. Plan MEDICAL DECISION MAKING: Overall, the patient's general and hemodynamic condition appears to be clinically and critically ill from progressive worsening of anasarca-bilateral lower extremity edema extending high up to mid thighs attended with hypotension. Her outpatient lab tests reflected low value of total protein at around 5.2 g and albumin at 2.4 g per 100 mL. As a result, the patient seems to have developed anasarca. The patient was recommended Higher dose of torsemide, high-protein diet and fluid restriction but failed It is interesting to note that she recently received extensive cardiac renal Work-up which was unremarkable for any significant pathologic finding However her MRCP of the liver showed significantly dilated common bile duct without distal obstruction. The patient was recommended ERCP exam and GI consult then. Dr. Velasco attended patient and recommended Further evaluation at tertiary care center. PLAN: 1. To admit her for IV albumin followed by torsemide or Lasix. 2. Monitor intake and output. 3. Reconcile home medications. 4. Update the patient's condition to the patient. Oh the patient and/or family is well informed by me about 1. Clinical impression, treatment plans, side effects of medications, course of the disease And prognosis 2. All patient's and concerns raised by patient or family are satisfactorily addressed by me SAMINA SU MD May 31, 2024 13:05
[2024-05-31] MEDS: GABAPENTIN 300 MG CAP PO SCH (15:05)
[2024-05-31] MEDS: cloNIDine HCL 0.1 MG TAB PO SCH (22:00)
[2024-06-01] VITALS (10 sets, daily range): BP systolic 81–152; BP diastolic 50–73; PULSE 72–93; RESP 16–18; TEMP 97.7–98.7; O2SAT 90–95
--- NOTE | 2024-06-01 09:46 | DVHPN2 ---
Progress Note - Dictate Date Seen: Jun 01, 2024 Subjective anasarca Urine out put 400 ml cont IV albumin and Lasix Received 2 D echo- report is pending vital signs Vital Sign Date Time Temp Pulse Resp B/P (MAP) Pulse Ox O2 Delivery O2 Flow Rate FiO2 06/01/24 09:38 116/59 06/01/24 08:38 98.4 81 16 90 98.4 05/31/24 20:00 Room Air* 0 21 Total Intake and Output 05/31/24 05/31/24 06/01/24 15:00 23:00 07:00 Intake Total 100 ml 600 ml 300 ml Balance 100 ml 600 ml 300 ml medications Current Medications Medications Dose Ordered Sig/Ran Route Start Time Stop Time Status Last Admin Dose Admin Nitroglycerin 0.4 mg Q5MINP PRN SL 05/30/24 19:15 Oxycodone HCl 20 mg Q6HR PO 05/31/24 00:00 06/01/24 06:21 20 MG Pantoprazole Sodium 40 mg DAILY PO 05/31/24 10:00 06/01/24 09:39 40 MG Ferrous Sulfate 325 mg BIDWM PO 05/31/24 08:00 06/01/24 09:37 325 MG Metoclopramide HCl 5 mg TIDAC PO 05/31/24 07:00 06/01/24 09:39 5 MG Patient Own Medication 1 cap TID PO 05/30/24 22:00 Valsartan 160 mg DAILY PO 05/31/24 10:00 06/01/24 09:37 160 MG Furosemide 100 mg/ Sodium Chloride 110 ml @ 5.5 mls/hr Q20H IV 05/30/24 19:30 Cancel Paroxetine HCl 40 mg DAILY PO 05/31/24 10:00 06/01/24 09:38 40 MG Hydromorphone HCl 0.6 mg Q4HP PRN IV 05/30/24 20:45 Hydromorphone HCl 1 mg Q4HP PRN IV 05/30/24 20:45 06/01/24 05:21 1 MG Ondansetron HCl 4 mg Q4HPRN PRN IV 05/31/24 11:00 05/31/24 20:15 4 MG Clonidine HCl 0.2 mg BID PO 05/31/24 22:00 06/01/24 09:38 0.2 MG Furosemide 20 mg BIDD IV 05/31/24 13:00 06/01/24 05:19 20 MG Gabapentin 600 mg TID PO 05/31/24 14:00 06/01/24 05:19 600 MG objective GENERAL APPEARANCE: well-nourished white female with kyphoscoliosis appears to be mildly short of breath. HEENT: Head normocephalic nontraumatic Eyes-EOMI, PERRLA, conjunctiva -pallor + 1, sclera nonicteric ENT-no congestion in ear, nose and throat Tongue and mucous membranes well hydrated NECK: Supple, trachea midline , carotid upstroke +2 No thyroid or lymph node enlargement, no use of accessory muscles, ROM at C-spine full CHEST: Symmetrical expansions, kyphoscoliosis hypoventilation at bases RS: Clear breath sounds bilaterally except Reduced breath sounds at bilateral bases CVS: S1-S2 normal sinus no gallop no murmur : Abdomen soft, obese, bowel sounds present No focal tenderness, no masses no hernia EXTs: Distal pulses +2, no rash, anasarca affecting bilateral lower extremity capillary refill instant, Feels peripherally warm SKIN: No rash, no open wounds 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 Hypoproteinemia. B. Hypoalbuminemia. C. Intrinsic liver disease. D failure to oral diuretics Admitting Diagnosis: 1. Hypotension a. Intravascular volume depletion b. Hypoproteinemia 2. 2. Intrinsic liver disease and cholestasis from: A. Dilated common bile duct. 3. 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 4. History of peptic ulcer disease. 5. Status post Billroth type 2 surgery. 6. Vitamin B12 deficiency anemia. 7. Chronic narcotic dependence. Plan MEDICAL DECISION MAKING: Overall, the patient's general and hemodynamic condition appears to be clinically and critically ill from progressive worsening of anasarca-bilateral lower extremity edema extending high up to mid thighs attended with hypotension. Her outpatient lab tests reflected low value of total protein at around 5.2 g and albumin at 2.4 g per 100 mL. As a result, the patient seems to have developed anasarca. The patient was recommended Higher dose of torsemide, high-protein diet and fluid restriction but failed It is interesting to note that she recently received extensive cardiac renal Work-up which was unremarkable for any significant pathologic finding However her MRCP of the liver showed significantly dilated common bile duct without distal obstruction. The patient was recommended ERCP exam and GI consult then. Dr. Velasco attended patient and recommended Further evaluation at tertiary care center. PLAN: 1. To admit her for IV albumin followed by torsemide or Lasix. 2. Monitor intake and output. 3. Reconcile home medications. 4. Update the patient's condition to the patient. Oh the patient and/or family is well informed by me about 1. Clinical impression, treatment plans, side effects of medications, course of the disease And prognosis 2. All patient's and concerns raised by patient or family are satisfactorily addressed by me SAMINA SU MD Jun 01, 2024 09:46
[2024-06-01 11:07] LABS: Alanine Aminotransferase 14 U/L (7-40); Albumin 2.8 g/dL (3.2-4.8); Alkaline Phosphatase 121 U/L (46-116); Anion Gap 1 (5-15); Aspartate Aminotransferase 21 U/L (13-40); BUN/Creatinine Ratio 19.5 (10.0-20.0); Blood Urea Nitrogen 8 mg/dL (9-23); Calcium 8.2 mg/dL (8.7-10.4); Carbon Dioxide 34 mmol/L (20-31); Chloride 99 mmol/L (98-107); Glucose 123 mg/dL (74-106); Potassium 3.6 mmol/L (3.5-5.1); Sodium 134 mmol/L (136-145)
[2024-06-01 11:08] LABS: Bilirubin, Total < 0.2 mg/dL (0.2-1.0); Total Protein 4.3 g/dL (5.7-8.2)
--- NOTE | 2024-06-01 11:36 | DVHSR ---
APPROVED REPORT EXAM: Two-dimensional and M-mode echocardiogram with Doppler and color Doppler. Blood Pressure: 171/93 mmHg INDICATION Anasarca RISK FACTORS Height: 5'6", Weight: 186 DIMENSIONS LVDd4.9 (3.8-5.7cm)LA (2D)4.6 (1.9-4.0cm)Aortic Root3.2 (2.0-3.7cm) LVDs3.0 (2.5-4.0cm)LA (MM) (1.9-4.0cm)Aortic Cusp Exc1.5 (1.5-2.0cm) EF (%) 65.0 (55-70%)Rt. Atrium4.8 (1.9-4.0cm)Asc. Aorta cm IVSd0.8 (0.7-1.1cm)RV (D)4.2 (1.8-2.4cm) PWd0.9 (0.7-1.1cm) Mitral Valve MitralMitral Stenosis E wave1.31m/sMV Mean GR.mmHg A wave1.45m/sMV Peak GR.mmHg E/A ratio0.92D MVAcm2 DECEL [id number] 1/2 Timems Aortic Valve Aortic ValveAortic Stenosis V11.43m/Yvette Mean GR.10mmHg V22.32m/Yvette Peak GR.22mmHg LVOT Diameter2.1 (1.8-2.4cm)Doppler AVA2.13cm2 Pulmonic Valve V21.16m/s Tricuspid Valve TR Velocity3.69m/s [id number] Conclusion Normal left ventricular size and dimension. Normal left ventricular systolic function estimated ejec tion fraction 55%. There is a grade 1 diastolic dysfunction. Normal right ventricular size and dimension. Severely elevated right ventricular systolic pressure a t 60 mm of mercury. Normal biatrial size and dimension. Normal aortic valve structure and function. There is mild aortic valve sclerosis Normal mitral valve structure and function. Normal tricuspid valve structure and function. The pulmonary valve is grossly normal. No pericardial effusion.
[2024-06-01] MEDS: HYDROmorphone HCL 2 MG/ML VL/or syr IV PRN (14:15)
[2024-06-01] MEDS: ALBUMIN 5% 250 ML IV ONE (20:46)
[2024-06-02] VITALS (10 sets, daily range): BP systolic 79–138; BP diastolic 43–77; PULSE 69–83; RESP 17–18; TEMP 97.6–98.6; O2SAT 91–94
[2024-06-02 06:34] LABS: Basophils # (auto) 0 10 ^3/uL (0-0.2); Basophils % (auto) 0.2 % (0.0-2.0); Eosinophils # (auto) 0.2 10 ^3/uL (0-0.8); Eosinophils % (auto) 1.6 % (0.0-7.0); Hematocrit 28.5 % (36.0-46.0); Hemoglobin 9.3 g/dL (12.2-16.2); Lymphocytes # (auto) 0.8 10 ^3/uL (0.4-5.4); Mean Corpuscular Hemoglobin 30.1 pg (28.0-32.0); Mean Corpuscular Hgb Conc. 32.7 g/dL (32.0-36.0); Mean Corpuscular Volume 91.9 fL (80.0-100.0); Monocytes # (auto) 0.7 10 ^3/uL (0-1.3); Monocytes % (auto) 7.1 % (0.0-12.0); Neutrophils # (auto) 8.5 10 ^3/uL (1.6-8.6); Neutrophils % (auto) 83.1 % (37.0-80.0); Platelet Count (auto) 343 10^3/uL (140-450); Red Cell Distribution Width 15.1 % (11.8-14.3); White Blood Cell 10.2 10^3/uL (4.4-10.8)
[2024-06-02 06:47] LABS: Alanine Aminotransferase 16 U/L (7-40); Alkaline Phosphatase 121 U/L (46-116); Anion Gap 4 (5-15); Aspartate Aminotransferase 19 U/L (13-40); BUN/Creatinine Ratio 22.2 (10.0-20.0); Bilirubin, Total < 0.2 mg/dL (0.2-1.0); Blood Urea Nitrogen 10 mg/dL (9-23); Calcium 8.4 mg/dL (8.7-10.4); Carbon Dioxide 32 mmol/L (20-31); Chloride 97 mmol/L (98-107); Glucose 98 mg/dL (74-106); Potassium 4.2 mmol/L (3.5-5.1); Sodium 133 mmol/L (136-145); Total Protein 4.5 g/dL (5.7-8.2)
--- NOTE | 2024-06-02 10:12 | DVHPN2 ---
Progress Note - Dictate Date Seen: Jun 02, 2024 Subjective Noted nonsustained V tach- Denies chest pains Hypotensive this am rec 0.9 Ns 500 ml bolus rec Mg rider for hypomagnesemia vital signs Vital Sign Date Time Temp Pulse Resp B/P (MAP) Pulse Ox O2 Delivery O2 Flow Rate FiO2 06/02/24 09:09 75 06/02/24 09:00 98.6 17 79/43 (55) 93 98.6 06/02/24 07:30 Room Air* 0 21 Total Intake and Output 06/01/24 06/01/24 06/02/24 15:00 23:00 07:00 Intake Total 800 ml 650 ml Output Total 1200 ml 920 ml Balance -400 ml -270 ml medications Current Medications Medications Dose Ordered Sig/Ran Route Start Time Stop Time Status Last Admin Dose Admin Nitroglycerin 0.4 mg Q5MINP PRN SL 05/30/24 19:15 Oxycodone HCl 20 mg Q6HR PO 05/31/24 00:00 06/02/24 06:45 20 MG Pantoprazole Sodium 40 mg DAILY PO 05/31/24 10:00 06/01/24 09:39 40 MG Ferrous Sulfate 325 mg BIDWM PO 05/31/24 08:00 06/01/24 18:27 325 MG Metoclopramide HCl 5 mg TIDAC PO 05/31/24 07:00 06/02/24 06:44 5 MG Patient Own Medication 1 cap TID PO 05/30/24 22:00 06/02/24 05:19 1 CAP Valsartan 160 mg DAILY PO 05/31/24 10:00 06/01/24 09:37 160 MG Furosemide 100 mg/ Sodium Chloride 110 ml @ 5.5 mls/hr Q20H IV 05/30/24 19:30 Cancel Paroxetine HCl 40 mg DAILY PO 05/31/24 10:00 06/01/24 09:38 40 MG Ondansetron HCl 4 mg Q4HPRN PRN IV 05/31/24 11:00 05/31/24 20:15 4 MG Clonidine HCl 0.2 mg BID PO 05/31/24 22:00 06/01/24 09:38 0.2 MG Furosemide 20 mg BIDD IV 05/31/24 13:00 06/02/24 05:19 20 MG Gabapentin 600 mg TID PO 05/31/24 14:00 06/02/24 05:18 600 MG objective GENERAL APPEARANCE: well-nourished white female with kyphoscoliosis appears to be mildly short of breath. HEENT: Head normocephalic nontraumatic Eyes-EOMI, PERRLA, conjunctiva -pallor + 1, sclera nonicteric ENT-no congestion in ear, nose and throat Tongue and mucous membranes well hydrated NECK: Supple, trachea midline , carotid upstroke +2 No thyroid or lymph node enlargement, no use of accessory muscles, ROM at C-spine full CHEST: Symmetrical expansions, kyphoscoliosis hypoventilation at bases RS: Clear breath sounds bilaterally except Reduced breath sounds at bilateral bases CVS: S1-S2 normal sinus no gallop no murmur : Abdomen soft, obese, bowel sounds present No focal tenderness, no masses no hernia EXTs: Distal pulses +2, no rash, anasarca affecting bilateral lower extremity capillary refill instant, Feels peripherally warm SKIN: No rash, no open wounds 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 Normal left ventricular systolic function estimated ejection fraction 55%. There is a grade 1 diastolic dysfunction. Normal right ventricular size and dimension. Severely elevated right ventricular systolic pressure at 60 mm of mercury. Normal biatrial size and dimension. Normal aortic valve structure and function. There is mild aortic valve sclerosis Normal mitral valve structure and function. Normal tricuspid valve structure and function. The pulmonary valve is grossly normal. No pericardial effusion. Problem List Recurrence of anasarca from: A. Hypoproteinemia. B. Hypoalbuminemia. C. Intrinsic liver disease. D failure to oral diuretics Admitting Diagnosis: 1. Hypotension a. Intravascular volume depletion b. Hypoproteinemia 2. 2. Intrinsic liver disease and cholestasis from: A. Dilated common bile duct. 3. 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 4. History of peptic ulcer disease. 5. Status post Billroth type 2 surgery. 6. Vitamin B12 deficiency anemia. 7. Chronic narcotic dependence. Plan MEDICAL DECISION MAKING: Overall, the patient's general and hemodynamic condition appears to be clinically and critically ill from progressive worsening of anasarca-bilateral lower extremity edema extending high up to mid thighs attended with hypotension. Her outpatient lab tests reflected low value of total protein at around 5.2 g and albumin at 2.4 g per 100 mL. As a result, the patient seems to have developed anasarca. The patient was recommended Higher dose of torsemide, high-protein diet and fluid restriction but failed It is interesting to note that she recently received extensive cardiac renal Work-up which was unremarkable for any significant pathologic finding However her MRCP of the liver showed significantly dilated common bile duct without distal obstruction. The patient was recommended ERCP exam and GI consult then. Dr. Velasco attended patient and recommended Further evaluation at tertiary care center. PLAN: 1. To admit her for IV albumin followed by torsemide or Lasix. 2. Monitor intake and output. 3. Reconcile home medications. 4. Update the patient's condition to the patient. Oh the patient and/or family is well informed by me about 1. Clinical impression, treatment plans, side effects of medications, course of the disease And prognosis 2. All patient's and concerns raised by patient or family are satisfactorily addressed by me SAMINA US MD Jun 02, 2024 10:12
[2024-06-02] MEDS: SODIUM CHLORIDE 0.9% 1,000 ML IV ONE (10:30)
[2024-06-02] MEDS: SODIUM CHLORIDE 0.9% 500 ML IV ONE (10:30)
--- NOTE | 2024-06-02 11:02 | DVHINCON2 ---
Date of service: Jun 02, 2024 History of Present Illness 8-year-old middle-aged white female with a known history of peptic ulcer disease, status post Billroth type II surgery and known history of chronic hypoproteinemia complicated by anasarca. i am consulted for NSVT about 8-9 beats wide complex tach today by Dr Nance Past Medical History reviewed Family History: Cancer of small intestine G8 FATHER FH: colon cancer G8 MOTHER, FH: hypertension G8 MOTHER, Allergies: Coded Allergies: Butorphanol (Verified Allergy, Unknown, 12/19/18) Home Meds Reported Medications Paroxetine HCl (Paroxetine Hydrochloride) 30 Mg Tab, for ANXIETY 05/30/24 Paroxetine Hydrochloride (Paroxetine Hydrochloride) 10 Mg Tab, 1 TAB PO DAILY for ANXIETY 05/30/24 Metoclopramide Hcl (Metoclopramide Hcl) 5 Mg Tab, 1 TAB PO TID 05/30/24 Valsartan (Valsartan) 160 Mg Tab, 1 TAB PO DAILY 05/30/24 Metoprolol Succinate (Metoprolol Succinate Er) 25 Mg Tab, 0.5 TAB PO DAILY 05/30/24 Gabapentin (Gabapentin) 600 Mg Tab, 2 TAB PO BID 05/30/24 Pantoprazole Sodium Sesquihydr (Protonix) 40 Mg Tab, 20 MG PO BID, #30 TAB 12/20/18 Ferrous Sulfate (Ferrous Sulfate) 325 Mg Tab, 325 MG PO BIDWM for 30 Days, MG 12/20/18 Ondansetron (Zofran) 4 Mg Tab, 4 MG PO Q6HPRN, MG 12/20/18 Metoclopramide Hcl (Reglan) 10 Mg Tab, 10 MG PO TID, TAB 12/20/18 Tizanidine Hydrochloride (Zanaflex) 4 Mg Cap, 1 CAP PO TID, #90 CAP 12/20/18 Gabapentin (Neurontin) 600 Mg Tab, 1 TAB PO TID, #90 TAB 3 Refills 12/20/18 Oxycodone Hcl (OXYCODONE HCL) 5 Mg Tb, 20 MG PO Q6HR 12/20/18 Discontinued Scripts Torsemide (Torsemide) 20 Mg Tab, 40 MG PO DAILY, #30 TAB 2 Refills Prov:SAMINA NANCE MD 12/28/18 Review of Systems 10 pt ros otherwise negative Vital Signs Vital Signs Date Time Temp Pulse Resp B/P (MAP) Pulse Ox O2 Delivery O2 Flow Rate FiO2 06/02/24 10:00 82/47 06/02/24 09:09 75 06/02/24 09:00 98.6 17 93 98.6 06/02/24 07:30 Room Air* 0 21 Physical Exam nad s1 s2 rrr ctab soft nt/nd +leg edema Labs/Diagnostic Data Labs Test 06/02/24 05:58 05/30/24 20:30 Range/Units White Blood Count 10.2 # 4.4-10.8 10^3/uL Red Blood Count 3.10 L 4.0-5.20 10^6/uL Hemoglobin 9.3 L 12.2-16.2 g/dL Hematocrit 28.5 #L 36.0-46.0 % Mean Corpuscular Volume 91.9 80.0-100.0 fL Mean Corpuscular Hemoglobin 30.1 28.0-32.0 pg Mean Corpuscular Hemoglobin Concent 32.7 32.0-36.0 g/dL Red Cell Distribution Width 15.1 H 11.8-14.3 % Platelet Count 343 140-450 10^3/uL Mean Platelet Volume 6.5 L 6.9-10.8 fL Neutrophils (%) (Auto) 83.1 H 37.0-80.0 % Lymphocytes (%) (Auto) 8.0 L 10.0-50.0 % Monocytes (%) (Auto) 7.1 0.0-12.0 % Eosinophils (%) (Auto) 1.6 0.0-7.0 % Basophils (%) (Auto) 0.2 0.0-2.0 % Neutrophils # (Auto) 8.5 1.6-8.6 10 ^3/uL Lymphocytes # (Auto) 0.8 0.4-5.4 10 ^3/uL Monocytes # (Auto) 0.7 0-1.3 10 ^3/uL Eosinophils # (Auto) 0.2 0-0.8 10 ^3/uL Basophils # (Auto) 0 0-0.2 10 ^3/uL Nucleated Red Blood Cells 0.0 % Sodium Level 133 L 136-145 mmol/L Potassium Level 4.2 3.5-5.1 mmol/L Chloride Level 97 L 98-107 mmol/L Carbon Dioxide Level 32 H 20-31 mmol/L Anion Gap 4 L 5-15 Blood Urea Nitrogen 10 9-23 mg/dL Creatinine 0.45 L 0.550-1.02 mg/dL Glomerular Filtration Rate Calc 103 >90 mL/min BUN/Creatinine Ratio 22.2 H 10.0-20.0 Serum Glucose 98 74-106 mg/dL Calcium Level 8.4 L 8.7-10.4 mg/dL Magnesium Level 1.4 L 1.6-2.6 mg/dL Total Bilirubin < 0.2 L 0.2-1.0 mg/dL Aspartate Amino Transferase (AST) 19 13-40 U/L Alanine Aminotransferase (ALT) 16 7-40 U/L Alkaline Phosphatase 121 H 46-116 U/L B-Type Natriuretic Peptide 277.33 0-100 pg/mL Total Protein 4.5 L 5.7-8.2 g/dL Albumin 3.0 L 3.2-4.8 g/dL Phosphorus Level 3.3 2.4-5.1 mg/dL Amylase Level 20 L 30-118 U/L Lipase 25 12-53 U/L Vitamin B12 Level 1625 H 211-911 pg/mL Assessment NSVT ansaraca hx of PUD s/p surgery low albumin hx of LV dysfunction 2022 Plan/Recommendation echo at [facility] showed ef 40% pt had LHC showing no severe cad in february 2023 no symptoms now BB is held 2/2 to low BP intravascular volume down at this time, supportive care check echo for lvef consider BB once sbp >110 Plan discussed with: Patient STEFAN LEDESMA MD Jun 02, 2024 11:02
[2024-06-02 11:49] LABS: Folate (Folic Acid) 29.04 ng/mL (>5.38)
[2024-06-02] MEDS: MAGNESIUM SULFATE 1GM/100ML 100 ML IV SCH (14:10)
[2024-06-02] MEDS: FUROSEMIDE 20 MG/2 ML VIAL IV SCH (23:17)
[2024-06-03] VITALS (12 sets, daily range): BP systolic 70–184; BP diastolic 40–93; PULSE 72–104; RESP 17–18; TEMP 97.8–98.9; O2SAT 90–100
[2024-06-03 06:10] LABS: Basophils # (auto) 0 10 ^3/uL (0-0.2); Basophils % (auto) 0.4 % (0.0-2.0); Eosinophils # (auto) 0.1 10 ^3/uL (0-0.8); Eosinophils % (auto) 2.1 % (0.0-7.0); Hematocrit 27.6 % (36.0-46.0); Lymphocytes # (auto) 0.6 10 ^3/uL (0.4-5.4); Lymphocytes % (auto) 9.9 % (10.0-50.0); Mean Corpuscular Hemoglobin 29.4 pg (28.0-32.0); Mean Corpuscular Hgb Conc. 32.4 g/dL (32.0-36.0); Mean Corpuscular Volume 90.7 fL (80.0-100.0); Monocytes # (auto) 0.7 10 ^3/uL (0-1.3); Monocytes % (auto) 11.2 % (0.0-12.0); Neutrophils # (auto) 4.6 10 ^3/uL (1.6-8.6); Neutrophils % (auto) 76.4 % (37.0-80.0); Platelet Count (auto) 290 10^3/uL (140-450); Red Blood Cells 3.04 10^6/uL (4.0-5.20); Red Cell Distribution Width 15.6 % (11.8-14.3)
[2024-06-03 06:25] LABS: Alanine Aminotransferase 13 U/L (7-40); Albumin 2.7 g/dL (3.2-4.8); Alkaline Phosphatase 121 U/L (46-116); Anion Gap 3 (5-15); Aspartate Aminotransferase 17 U/L (13-40); BUN/Creatinine Ratio 32.5 (10.0-20.0); Blood Urea Nitrogen 13 mg/dL (9-23); Calcium 8.1 mg/dL (8.7-10.4); Carbon Dioxide 32 mmol/L (20-31); Chloride 99 mmol/L (98-107); Glucose 98 mg/dL (74-106); Sodium 134 mmol/L (136-145)
[2024-06-03 06:26] LABS: Bilirubin, Total < 0.2 mg/dL (0.2-1.0); Total Protein 4.1 g/dL (5.7-8.2)
[2024-06-03] MEDS ORDERED: ALBUMIN 5% 500 ML IV ONE (09:45)
--- NOTE | 2024-06-03 10:01 | DVHPN2 ---
Progress Note - Dictate Subjective Noted nonsustained V tach- Denies chest pains Hypotensive this am rec 0.9 Ns 500 ml bolus rec Mg rider for hypomagnesemia vital signs Vital Sign Date Time Temp Pulse Resp B/P (MAP) Pulse Ox O2 Delivery O2 Flow Rate FiO2 06/03/24 09:45 85/75 (78) 06/03/24 09:40 98.6 82 17 100 98.6 06/03/24 08:00 Room Air* 0 21 Total Intake and Output 06/02/24 06/02/24 06/03/24 15:00 23:00 07:00 Intake Total 1100 ml 400 ml Output Total 1200 ml 2500 ml Balance -100 ml -2100 ml medications Current Medications Medications Dose Ordered Sig/Ran Route Start Time Stop Time Status Last Admin Dose Admin Nitroglycerin 0.4 mg Q5MINP PRN SL 05/30/24 19:15 Oxycodone HCl 20 mg Q6HR PO 05/31/24 00:00 06/03/24 05:59 20 MG Pantoprazole Sodium 40 mg DAILY PO 05/31/24 10:00 06/03/24 09:13 40 MG Ferrous Sulfate 325 mg BIDWM PO 05/31/24 08:00 06/03/24 07:48 325 MG Metoclopramide HCl 5 mg TIDAC PO 05/31/24 07:00 06/03/24 05:59 5 MG Patient Own Medication 1 cap TID PO 05/30/24 22:00 06/03/24 06:53 1 CAP Valsartan 160 mg DAILY PO 05/31/24 10:00 06/01/24 09:37 160 MG Furosemide 100 mg/ Sodium Chloride 110 ml @ 5.5 mls/hr Q20H IV 05/30/24 19:30 Cancel Paroxetine HCl 40 mg DAILY PO 05/31/24 10:00 06/02/24 10:32 40 MG Ondansetron HCl 4 mg Q4HPRN PRN IV 05/31/24 11:00 06/03/24 05:55 4 MG Clonidine HCl 0.2 mg BID PO 05/31/24 22:00 06/01/24 09:38 0.2 MG Gabapentin 600 mg TID PO 05/31/24 14:00 06/03/24 05:58 600 MG Furosemide 20 mg DAILY IV 06/02/24 22:30 06/02/24 23:17 20 MG objective GENERAL APPEARANCE: well-nourished white female with kyphoscoliosis appears to be mildly short of breath. HEENT: Head normocephalic nontraumatic Eyes-EOMI, PERRLA, conjunctiva -pallor + 1, sclera nonicteric ENT-no congestion in ear, nose and throat Tongue and mucous membranes well hydrated NECK: Supple, trachea midline , carotid upstroke +2 No thyroid or lymph node enlargement, no use of accessory muscles, ROM at C-spine full CHEST: Symmetrical expansions, kyphoscoliosis hypoventilation at bases RS: Clear breath sounds bilaterally except Reduced breath sounds at bilateral bases CVS: S1-S2 normal sinus no gallop no murmur : Abdomen soft, obese, bowel sounds present No focal tenderness, no masses no hernia EXTs: Distal pulses +2, no rash, anasarca affecting bilateral lower extremity capillary refill instant, Feels peripherally warm SKIN: No rash, no open wounds 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 Hypoproteinemia. B. Hypoalbuminemia. C. Intrinsic liver disease. D failure to oral diuretics Admitting Diagnosis: 1. Hypotension a. Intravascular volume depletion b. Hypoproteinemia 2. 2. Intrinsic liver disease and cholestasis from: A. Dilated common bile duct. 3. 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 4. History of peptic ulcer disease. 5. Status post Billroth type 2 surgery. 6. Vitamin B12 deficiency anemia. 7. Chronic narcotic dependence. Plan MEDICAL DECISION MAKING: Overall, the patient's general and hemodynamic condition appears to be clinically and critically ill from progressive worsening of anasarca-bilateral lower extremity edema extending high up to mid thighs attended with hypotension. Her outpatient lab tests reflected low value of total protein at around 5.2 g and albumin at 2.4 g per 100 mL. As a result, the patient seems to have developed anasarca. The patient was recommended Higher dose of torsemide, high-protein diet and fluid restriction but failed It is interesting to note that she recently received extensive cardiac renal Work-up which was unremarkable for any significant pathologic finding However her MRCP of the liver showed significantly dilated common bile duct without distal obstruction. The patient was recommended ERCP exam and GI consult then. Dr. Velasco attended patient and recommended Further evaluation at tertiary care center. PLAN: 1. To admit her for IV albumin followed by torsemide or Lasix. 2. Monitor intake and output. 3. Reconcile home medications. 4. Update the patient's condition to the patient. Oh the patient and/or family is well informed by me about 1. Clinical impression, treatment plans, side effects of medications, course of the disease And prognosis 2. All patient's and concerns raised by patient or family are satisfactorily addressed by SAMINA Hilliard MD Jun 03, 2024 10:01
[2024-06-03] MEDS: SODIUM CHLORIDE 0.9% 500 ML IV ONE (11:50)
--- NOTE | 2024-06-03 12:49 | DVHPN2 ---
Progress Note Date Seen: Jun 03, 2024 Has the PT tested + for MRSA If YES, has PT been informed?: No Medical Necessity Reason Pt with a Central, PICC or Fol: No Subjective Patient reports: Feels better Objective vital signs Vital Sign Date Time Temp Pulse Resp B/P (MAP) Pulse Ox O2 Delivery O2 Flow Rate FiO2 06/03/24 12:34 98.2 76 17 106/50 (68) 90 98.2 06/03/24 08:00 Room Air* 0 21 Total Intake and Output 06/02/24 06/02/24 06/03/24 15:00 23:00 07:00 Intake Total 1100 ml 400 ml Output Total 1200 ml 2500 ml Balance -100 ml -2100 ml medications Current Medications Medications Dose Ordered Sig/Rna Route Start Time Stop Time Status Last Admin Dose Admin Nitroglycerin 0.4 mg Q5MINP PRN SL 05/30/24 19:15 Oxycodone HCl 20 mg Q6HR PO 05/31/24 00:00 06/03/24 12:28 20 MG Pantoprazole Sodium 40 mg DAILY PO 05/31/24 10:00 06/03/24 09:13 40 MG Ferrous Sulfate 325 mg BIDWM PO 05/31/24 08:00 06/03/24 07:48 325 MG Metoclopramide HCl 5 mg TIDAC PO 05/31/24 07:00 06/03/24 12:28 5 MG Patient Own Medication 1 cap TID PO 05/30/24 22:00 06/03/24 06:53 1 CAP Furosemide 100 mg/ Sodium Chloride 110 ml @ 5.5 mls/hr Q20H IV 05/30/24 19:30 Cancel Paroxetine HCl 40 mg DAILY PO 05/31/24 10:00 06/02/24 10:32 40 MG Ondansetron HCl 4 mg Q4HPRN PRN IV 05/31/24 11:00 06/03/24 05:55 4 MG Gabapentin 600 mg TID PO 05/31/24 14:00 06/03/24 05:58 600 MG Sodium Chloride 1,000 ml @ 60 mls/hr [id number] IV 06/03/24 09:45 Examination: GENERAL:Abnormal, HEENT:Normal, LUNGS:Abnormal, CVS:Abnormal, ABDOMEN:Abnormal laboratory and microbiology Laboratory Tests 06/03/24 05:22 Test 06/03/24 05:22 Range/Units Serum Glucose 98 74-106 mg/dL Problem List/Assessment/Plan Problem List/Assessment/Plan anasarca low protein HTN NSVT echo shows improved lef once bp improved restart BB [facility] was - for cad outpt fu Plan discussed with: Patient Date of Service: Jun 03, 2024 Billing Provider: STEFAN LEDESMA MD Common Visit Codes: NOT BILLABLE STEFAN LEDESMA MD Jun 03, 2024 12:49
[2024-06-03] MEDS: SODIUM CHLORIDE 0.9% 1,000 ML IV SCH (13:05)
[2024-06-03] MEDS: ALBUMIN 5% 500 ML IV ONE (13:06)
[2024-06-03] MEDS: VALSARTAN 80 MG TAB PO ONE (19:56)
[2024-06-04 01:00] VITALS: BP 123/61; PULSE 83; RESP 18; TEMP 98.7; O2SAT 96
[2024-06-04 05:00] VITALS: BP 168/84; PULSE 97; RESP 18; TEMP 98.1; O2SAT 91
[2024-06-04 06:46] VITALS: BP 123/62
--- NOTE | 2024-06-04 07:43 | DVHPN2 ---
Progress Note Date Seen: Jun 04, 2024 Has the PT tested + for MRSA If YES, has PT been informed?: No Medical Necessity Reason Pt with a Central, PICC or Fol: No Subjective Patient reports: Feels better Objective vital signs Vital Sign Date Time Temp Pulse Resp B/P (MAP) Pulse Ox O2 Delivery O2 Flow Rate FiO2 06/04/24 06:46 123/62 (82) 06/04/24 05:00 98.1 97 18 91 98.1 06/03/24 20:00 Room Air* 0 21 Total Intake and Output 06/03/24 06/03/24 06/04/24 15:00 23:00 07:00 Intake Total 1180 ml 900 ml Output Total 950 ml 2500 ml Balance 230 ml -1600 ml medications Current Medications Medications Dose Ordered Sig/Ran Route Start Time Stop Time Status Last Admin Dose Admin Nitroglycerin 0.4 mg Q5MINP PRN SL 05/30/24 19:15 Oxycodone HCl 20 mg Q6HR PO 05/31/24 00:00 06/04/24 06:25 20 MG Pantoprazole Sodium 40 mg DAILY PO 05/31/24 10:00 06/03/24 09:13 40 MG Ferrous Sulfate 325 mg BIDWM PO 05/31/24 08:00 06/03/24 17:50 325 MG Metoclopramide HCl 5 mg TIDAC PO 05/31/24 07:00 06/04/24 06:25 5 MG Patient Own Medication 1 cap TID PO 05/30/24 22:00 06/04/24 05:02 1 CAP Furosemide 100 mg/ Sodium Chloride 110 ml @ 5.5 mls/hr Q20H IV 05/30/24 19:30 Cancel Paroxetine HCl 40 mg DAILY PO 05/31/24 10:00 06/02/24 10:32 40 MG Ondansetron HCl 4 mg Q4HPRN PRN IV 05/31/24 11:00 06/03/24 20:24 4 MG Gabapentin 600 mg TID PO 05/31/24 14:00 06/04/24 05:01 600 MG Sodium Chloride 1,000 ml @ 60 mls/hr [id number] IV 06/03/24 09:45 06/03/24 13:05 60 MLS/HR Examination: GENERAL:Abnormal, HEENT:Abnormal, LUNGS:Abnormal, CVS:Abnormal, ABDOMEN:Abnormal laboratory and microbiology Laboratory Tests 06/03/24 05:22 Test 06/03/24 05:22 Range/Units Serum Glucose 98 74-106 mg/dL Problem List/Assessment/Plan Problem List/Assessment/Plan anasarca low protein HTN NSVT echo shows improved lef once bp improved restart BB [facility] was - for cad outpt fu bp improved, resume toprol today Plan discussed with: Patient Date of Service: Jun 04, 2024 Billing Provider: STEFAN LEDESMA MD Common Visit Codes: NOT BILLABLE STEFAN LEDESMA MD Jun 04, 2024 07:43
[2024-06-04 08:00] VITALS: PULSE 77; RESP 16
[2024-06-04 08:54] VITALS: BP 124/67; PULSE 78; RESP 16; TEMP 98.1; O2SAT 94
[2024-06-04] MEDS: METOPROLOL SUCCINATE XL 50 MG TAB PO SCH (09:50)
--- NOTE | 2024-06-04 11:02 | DVHPN2 ---
Progress Note - Dictate Date Seen: Jun 04, 2024 Has the PT tested + for MRSA If YES, has PT been informed?: No Medical Necessity Reason Pt with a Central, PICC or Fol: No Subjective Noted nonsustained V tach- Denies chest pains Hypotensive this am rec 0.9 Ns 500 ml bolus rec Mg rider for hypomagnesemia vital signs Vital Sign Date Time Temp Pulse Resp B/P (MAP) Pulse Ox O2 Delivery O2 Flow Rate FiO2 06/04/24 09:50 77 112/56 06/04/24 08:54 98.1 16 94 98.1 06/04/24 08:00 Room Air* 0 21 Total Intake and Output 06/03/24 06/03/24 06/04/24 15:00 23:00 07:00 Intake Total 1180 ml 900 ml Output Total 950 ml 2500 ml Balance 230 ml -1600 ml medications Current Medications Medications Dose Ordered Sig/Ran Route Start Time Stop Time Status Last Admin Dose Admin Nitroglycerin 0.4 mg Q5MINP PRN SL 05/30/24 19:15 Oxycodone HCl 20 mg Q6HR PO 05/31/24 00:00 06/04/24 06:25 20 MG Pantoprazole Sodium 40 mg DAILY PO 05/31/24 10:00 06/04/24 09:49 40 MG Ferrous Sulfate 325 mg BIDWM PO 05/31/24 08:00 06/04/24 08:14 325 MG Metoclopramide HCl 5 mg TIDAC PO 05/31/24 07:00 06/04/24 06:25 5 MG Patient Own Medication 1 cap TID PO 05/30/24 22:00 06/04/24 05:02 1 CAP Furosemide 100 mg/ Sodium Chloride 110 ml @ 5.5 mls/hr Q20H IV 05/30/24 19:30 Cancel Paroxetine HCl 40 mg DAILY PO 05/31/24 10:00 06/04/24 09:50 40 MG Ondansetron HCl 4 mg Q4HPRN PRN IV 05/31/24 11:00 06/03/24 20:24 4 MG Gabapentin 600 mg TID PO 05/31/24 14:00 06/04/24 05:01 600 MG Sodium Chloride 1,000 ml @ 60 mls/hr [id number] IV 06/03/24 09:45 06/03/24 13:05 60 MLS/HR Metoprolol Succinate 25 mg DAILY PO 06/04/24 10:00 06/04/24 09:50 25 MG objective GENERAL APPEARANCE: well-nourished white female with kyphoscoliosis appears to be mildly short of breath. HEENT: Head normocephalic nontraumatic Eyes-EOMI, PERRLA, conjunctiva -pallor + 1, sclera nonicteric ENT-no congestion in ear, nose and throat Tongue and mucous membranes well hydrated NECK: Supple, trachea midline , carotid upstroke +2 No thyroid or lymph node enlargement, no use of accessory muscles, ROM at C-spine full CHEST: Symmetrical expansions, kyphoscoliosis hypoventilation at bases RS: Clear breath sounds bilaterally except Reduced breath sounds at bilateral bases CVS: S1-S2 normal sinus no gallop no murmur : Abdomen soft, obese, bowel sounds present No focal tenderness, no masses no hernia EXTs: Distal pulses +2, no rash, anasarca affecting bilateral lower extremity capillary refill instant, Feels peripherally warm SKIN: No rash, no open wounds 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 Hypoproteinemia. B. Hypoalbuminemia. C. Intrinsic liver disease. D failure to oral diuretics Admitting Diagnosis: 1. Hypotension a. Intravascular volume depletion b. Hypoproteinemia 2. 2. Intrinsic liver disease and cholestasis from: A. Dilated common bile duct. 3. 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 4. History of peptic ulcer disease. 5. Status post Billroth type 2 surgery. 6. Vitamin B12 deficiency anemia. 7. Chronic narcotic dependence. Plan MEDICAL DECISION MAKING: Overall, the patient's general and hemodynamic condition appears to be clinically and critically ill from progressive worsening of anasarca-bilateral lower extremity edema extending high up to mid thighs attended with hypotension. Her outpatient lab tests reflected low value of total protein at around 5.2 g and albumin at 2.4 g per 100 mL. As a result, the patient seems to have developed anasarca. The patient was recommended Higher dose of torsemide, high-protein diet and fluid restriction but failed It is interesting to note that she recently received extensive cardiac renal Work-up which was unremarkable for any significant pathologic finding However her MRCP of the liver showed significantly dilated common bile duct without distal obstruction. The patient was recommended ERCP exam and GI consult then. Dr. Velasco attended patient and recommended Further evaluation at tertiary care center. PLAN: 1. To admit her for IV albumin followed by torsemide or Lasix. 2. Monitor intake and output. 3. Reconcile home medications. 4. Update the patient's condition to the patient. Oh the patient and/or family is well informed by me about 1. Clinical impression, treatment plans, side effects of medications, course of the disease And prognosis 2. All patient's and concerns raised by patient or family are satisfactorily addressed by me SAMINA SU MD Jun 04, 2024 11:01
[2024-06-04] MEDS ORDERED: VALS1TAB58 PO (11:10)
--- NOTE | 2024-06-04 11:28 | DVHDS2 ---
Discharge Summary Date of Admission May 30, 2024 at 16:26 Date of Discharge: Jun 04, 2024 Labs/Diagnostic Data: Laboratory Results Test 06/03/24 05:22 06/02/24 17:50 06/02/24 05:58 05/30/24 20:30 White Blood Count 6.0 10^3/uL (4.4-10.8) Red Blood Count 3.04 10^6/uL (4.0-5.20) Hemoglobin 9.0 g/dL (12.2-16.2) Hematocrit 27.6 % (36.0-46.0) Mean Corpuscular Volume 90.7 fL (80.0-100.0) Mean Corpuscular Hemoglobin 29.4 pg (28.0-32.0) Mean Corpuscular Hemoglobin Concent 32.4 g/dL (32.0-36.0) Red Cell Distribution Width 15.6 % (11.8-14.3) Platelet Count 290 10^3/uL (140-450) Mean Platelet Volume 6.9 fL (6.9-10.8) Neutrophils (%) (Auto) 76.4 % (37.0-80.0) Lymphocytes (%) (Auto) 9.9 % (10.0-50.0) Monocytes (%) (Auto) 11.2 % (0.0-12.0) Eosinophils (%) (Auto) 2.1 % (0.0-7.0) Basophils (%) (Auto) 0.4 % (0.0-2.0) Neutrophils # (Auto) 4.6 10 ^3/uL (1.6-8.6) Lymphocytes # (Auto) 0.6 10 ^3/uL (0.4-5.4) Monocytes # (Auto) 0.7 10 ^3/uL (0-1.3) Eosinophils # (Auto) 0.1 10 ^3/uL (0-0.8) Basophils # (Auto) 0 10 ^3/uL (0-0.2) Nucleated Red Blood Cells 0.0 % Sodium Level 134 mmol/L (136-145) Potassium Level 4.0 mmol/L (3.5-5.1) Chloride Level 99 mmol/L (98-107) Carbon Dioxide Level 32 mmol/L (20-31) Anion Gap 3 (5-15) Blood Urea Nitrogen 13 mg/dL (9-23) Creatinine 0.40 mg/dL (0.550-1.02) Glomerular Filtration Rate Calc 106 mL/min (>90) BUN/Creatinine Ratio 32.5 (10.0-20.0) Serum Glucose 98 mg/dL (74-106) Calcium Level 8.1 mg/dL (8.7-10.4) Total Bilirubin < 0.2 mg/dL (0.2-1.0) Aspartate Amino Transferase (AST) 17 U/L (13-40) Alanine Aminotransferase (ALT) 13 U/L (7-40) Alkaline Phosphatase 121 U/L (46-116) Total Protein 4.1 g/dL (5.7-8.2) Albumin 2.7 g/dL (3.2-4.8) Magnesium Level 2.0 mg/dL (1.6-2.6) B-Type Natriuretic Peptide 277.33 pg/mL (0-100) Phosphorus Level 3.3 mg/dL (2.4-5.1) Amylase Level 20 U/L (30-118) Lipase 25 U/L (12-53) Vitamin B12 Level 1625 pg/mL (211-911) Folic Acid 29.04 ng/mL (>5.38) Other Laboratory Tests 06/03/24 05:22 Final Diagnosis/Problems List Recurrence of anasarca from: A. Hypoproteinemia. B. Hypoalbuminemia. C. Intrinsic liver disease. D failure to oral diuretics 2. Hypotension a. Intravascular volume depletion b. Hypoproteinemia Discharge Disposition: Home Discharge Instruct/Medications Diet: Cardiac 2g Na,low cholest Diet comment: 1500 christian Low carb, 2 gm , Low sat fat, 90 gm Protein Ensure plus 1 can PO TID Activity: Light activity Follow Up/Referral: Dr. Tashi Nance in 1-[address] Morrell in 1-2 weeks Medications: Pl refer to Med rec Discharge Statement: "Patient was advised to return to the ER or call 911 if any headaches, dizziness, shortness of breath, chest pain, abdominal pain, bleeding, fevers, or worsening of medical condition. Patient was counseled about treatment plan, medications, possible side effects, patientverbalized understanding. All questions were answered to the best of my ability. This discharge took greater then 30 minutes in planning, reviewing documentation, counseling the patient, and discussing with other team members." ASSESSMENT ASSESSMENT Assessment Recurrence of anasarca from: A. Hypoproteinemia. B. Hypoalbuminemia. C. Intrinsic liver disease. D failure to oral diuretics 2. Hypotension a. Intravascular volume depletion b. Hypoproteinemia SAMINA NANCE MD Jun 04, 2024 11:28
== END 2024-06-04 13:11 | disposition home or self-care (01) | DRG 843 ==
LOC: WEST WING 16:26 → TELE-WESTW 19:38
PROVIDERS: ADMIT Specialist; ATTEND Specialist
DX: E88.09 Other disorders of plasma-protein metabolism, not elsewhere classified (principal); K83.1 Obstruction of bile duct; I47.20 Ventricular tachycardia, unspecified; F11.20 Opioid dependence, uncomplicated; I95.9 Hypotension, unspecified; D51.9 Vitamin B12 deficiency anemia, unspecified; D50.9 Iron deficiency anemia, unspecified; E77.8 Other disorders of glycoprotein metabolism; G89.29 Other chronic pain; E86.9 Volume depletion, unspecified; K76.9 Liver disease, unspecified; Z80.0 Family history of malignant neoplasm of digestive organs; Z82.49 Family history of ischemic heart disease and other diseases of the circulatory system; Z87.11 Personal history of peptic ulcer disease; Z96.652 Presence of left artificial knee joint; Z79.899 Other long term (current) drug therapy
CPT/HCPCS: 36415; 71046; 80053; 82150; 82607; 82746; 83690; 83735; 83880; 84100; 85025; 93306; G0378; J2405; P9047

== ENCOUNTER 2024-06-20 15:21 | Inpatient (IN) | payer MEDICARE ==
[~2024-06-20] VITALS: Ht 167.6 cm; Wt 79.8 kg
[~2024-06-20 15:21] MED LIST changes: +PARO-181; +PARO10TA93 PO; -TORS20TA20 PO; +VALS1TAB58 PO
[2024-06-20 16:00] VITALS: BP 155/62; PULSE 69; RESP 17; TEMP 98.3; O2SAT 98
[2024-06-20 17:00] VITALS: BP_SYST 125; BP_SYST 155; BP_DIAS 62; BP_DIAS 71; PULSE 64; PULSE 69; RESP 16; RESP 17; TEMP 98.3; TEMP 98.5; O2SAT 98
[2024-06-20] MEDS ORDERED: MORPHINE SULFATE INJ 2 MG/ml SYRG IV PRN (17:00)
[2024-06-20] MEDS ORDERED: NITROGLYCERIN 0.4 MG SL TAB SL PRN (17:00)
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
--- NOTE | 2024-06-20 18:07 | DVH ---
CHEST RADIOGRAPH Indication: pre admit Technique: Frontal and lateral view of the chest was obtained Comparison: XY CHEST TWO VIEWS ROUTINE on DOS: 05/31/24 FINDINGS: Lines and Tubes: None Lungs: Clear mild elevation left diaphragm. Increased AP dimension to the chest. Pleura: No effusion. No pneumothorax. Cardiomediastinal contours: Unremarkable Bones: Unremarkable IMPRESSION: 1. No evidence of acute disease. 2. No significant change from 05/31/2024.
[2024-06-20] MEDS ORDERED: ONDANSETRON ODT 4 MG TAB PO PRN (18:15)
[2024-06-20] MEDS: oxyCODONE HCL 5MG TAB PO PRN (18:46)
[2024-06-20] MEDS: SODIUM CHLORIDE 0.9% 1,000 ML IV SCH (18:52)
[2024-06-20 19:07] LABS: Basophils # (auto) 0 10 ^3/uL (0-0.2); Basophils % (auto) 0.7 % (0.0-2.0); Eosinophils # (auto) 0.2 10 ^3/uL (0-0.8); Eosinophils % (auto) 4.4 % (0.0-7.0); Hematocrit 26.1 % (36.0-46.0); Hemoglobin 8.3 g/dL (12.2-16.2); Lymphocytes % (auto) 19.4 % (10.0-50.0); Mean Corpuscular Hemoglobin 28.6 pg (28.0-32.0); Mean Corpuscular Hgb Conc. 31.8 g/dL (32.0-36.0); Mean Corpuscular Volume 90.1 fL (80.0-100.0); Monocytes # (auto) 0.5 10 ^3/uL (0-1.3); Neutrophils # (auto) 3.5 10 ^3/uL (1.6-8.6); Neutrophils % (auto) 65.5 % (37.0-80.0); Platelet Count (auto) 422 10^3/uL (140-450); Red Blood Cells 2.89 10^6/uL (4.0-5.20); Red Cell Distribution Width 14.9 % (11.8-14.3); White Blood Cell 5.4 10^3/uL (4.4-10.8)
[2024-06-20 19:27] LABS: Alanine Aminotransferase 15 U/L (7-40); Alkaline Phosphatase 111 U/L (46-116); Amylase 34 U/L (30-118); Aspartate Aminotransferase 20 U/L (13-40); BUN/Creatinine Ratio 27.7 (10.0-20.0); Blood Urea Nitrogen 13 mg/dL (9-23); Chloride 101 mmol/L (98-107); Glucose 94 mg/dL (74-106); Magnesium 1.6 mg/dL (1.6-2.6); Potassium 4.4 mmol/L (3.5-5.1)
[2024-06-20 19:28] LABS: Phosphorus 4.3 mg/dL (2.4-5.1)
[2024-06-20 19:29] LABS: Albumin 2.7 g/dL (3.2-4.8); Bilirubin, Total < 0.2 mg/dL (0.2-1.0); Calcium 8.4 mg/dL (8.7-10.4); Sodium 133 mmol/L (136-145); Total Protein 4.3 g/dL (5.7-8.2)
[2024-06-20 19:32] LABS: Anion Gap 6 (5-15); Carbon Dioxide 26 mmol/L (20-31)
[2024-06-20 19:52] LABS: Lipase 31 U/L (12-53)
[2024-06-20 20:00] VITALS: PULSE 69; PULSE 95; RESP 19; O2SAT 96
[2024-06-20 21:00] VITALS: BP 159/54; PULSE 69; RESP 17; TEMP 97.9; O2SAT 97
[2024-06-20] MEDS: METOCLOPRAMIDE HCL 10 MG TAB PO SCH (21:41)
[2024-06-20] MEDS: PANTOPRAZOLE 40 MG TAB PO SCH (21:42)
[2024-06-21] VITALS (8 sets, daily range): BP systolic 105–198; BP diastolic 54–90; PULSE 76–91; RESP 14–18; TEMP 97.8–98.5; O2SAT 83–99
[2024-06-21] MEDS: MAGNESIUM SULFATE 1GM/100ML 100 ML IV ONE (00:33)
[2024-06-21 03:04] LABS: Urine Bacteria None Seen /hpf (None Seen)
[2024-06-21 03:14] LABS: Urine Blood Negative /uL (Negative); Urine Clarity Clear (Clear); Urine Color Colorless (Yellow); Urine Protein, UAD Negative (Negative); Urine Specific Gravity 1.007 (1.001-1.035); Urine Urobilinogen Normal (Negative); Urine WBC 2 /hpf (0 - 5); Urine pH 6.5 (5.0-9.0)
[2024-06-21 05:10] LABS: Basophils # (auto) 0.1 10 ^3/uL (0-0.2); Eosinophils # (auto) 0.2 10 ^3/uL (0-0.8); Eosinophils % (auto) 3.3 % (0.0-7.0); Hematocrit 27.3 % (36.0-46.0); Lymphocytes % (auto) 16.8 % (10.0-50.0); Mean Corpuscular Hemoglobin 29.3 pg (28.0-32.0); Monocytes # (auto) 0.7 10 ^3/uL (0-1.3); Monocytes % (auto) 12.3 % (0.0-12.0); Neutrophils # (auto) 3.9 10 ^3/uL (1.6-8.6); Neutrophils % (auto) 66.6 % (37.0-80.0); Nucleated Red Blood Cells % 0.1 %; Platelet Count (auto) 442 10^3/uL (140-450); Red Blood Cells 3.07 10^6/uL (4.0-5.20); White Blood Cell 5.9 10^3/uL (4.4-10.8)
[2024-06-21 05:31] LABS: Alanine Aminotransferase 15 U/L (7-40); Anion Gap 10 (5-15); Aspartate Aminotransferase 16 U/L (13-40); Blood Urea Nitrogen 12 mg/dL (9-23); Carbon Dioxide 24 mmol/L (20-31); Chloride 103 mmol/L (98-107); Glucose 98 mg/dL (74-106); INR 1.03 (0.9-1.15); Partial Thromboplastin Time 25.1 SEC (24.5-34.5); Potassium 4.1 mmol/L (3.5-5.1); Prothrombin Time 10.9 sec (9.3-11.8); Sodium 137 mmol/L (136-145)
[2024-06-21 05:45] LABS: Alkaline Phosphatase 117 U/L (46-116); Bilirubin, Total < 0.2 mg/dL (0.2-1.0); Calcium 8.3 mg/dL (8.7-10.4); Total Protein 4.5 g/dL (5.7-8.2)
[2024-06-21] MEDS: PARoxetine 20 MG TAB PO SCH ×2 (07:50→08:42)
--- NOTE | 2024-06-21 09:52 | DVH ---
CHEST RADIOGRAPH Indication: pre admit- CHF Technique: Single frontal view of the chest was obtained COMPARISON: None FINDINGS: Lines and Tubes: None Lungs: Left basilar subsegmental atelectasis. Pleura: No effusion. No pneumothorax. Cardiomediastinal contours: Unremarkable Bones: Unremarkable IMPRESSION: Left basilar subsegmental atelectasis.
[2024-06-21] MEDS: SODIUM CHLORIDE 0.9% 1,000 ML IV SCH (11:00)
[2024-06-21] MEDS: GABAPENTIN 300 MG CAP PO SCH (11:01)
[2024-06-21] MEDS: VALSARTAN 80 MG TAB PO SCH (11:15)
[2024-06-21] MEDS: GABAPENTIN 300 MG CAP PO ONE (11:16)
[2024-06-21] MEDS: FUROSEMIDE 20 MG TAB PO ONE (13:03)
--- NOTE | 2024-06-21 13:33 | DVHPN2 ---
Progress Note - Dictate Date Seen: Jun 21, 2024 Has the PT tested + for MRSA If YES, has PT been informed?: No Medical Necessity Reason Pt with a Central, PICC or Fol: No Medical Necessity Reason Acute on chronic iron-deficiency anemia-rule out GI bleeding Hyponatremia-rule out SIADH Subjective The patient is currently being evaluated and treated for symptoms of acute on chronic iron-deficiency anemia * Patient reported symptoms of rectal bleeding from hemorrhoids * Her hemoglobin appears slightly improved to 9 g% * Seen by Dr. Jones * Patient is under close observation * Also currently being treated for hypovolemic hyponatremia * Labs are unremarkable for SIADH Overnight events are reviewed through medical chart and case discussion with patient's assigned RN while making rounds on patient on the day of service vital signs Vital Sign Date Time Temp Pulse Resp B/P (MAP) Pulse Ox O2 Delivery O2 Flow Rate FiO2 06/21/24 13:03 165/87 06/21/24 09:00 98.1 91 18 94 98.1 06/20/24 20:00 Room Air* 0 21 Total Intake and Output 06/20/24 06/20/24 06/21/24 15:00 23:00 07:00 Intake Total 1550 ml Balance 1550 ml medications Current Medications Medications Dose Ordered Sig/Ran Route Start Time Stop Time Status Last Admin Dose Admin Nitroglycerin 0.4 mg Q5MINP PRN SL 06/20/24 17:00 Morphine Sulfate 2 mg Q30M PRN IV 06/20/24 17:00 Metoclopramide HCl 10 mg TID PO 06/20/24 22:00 06/21/24 06:00 10 MG Oxycodone HCl 20 mg Q6HR PRN PO 06/20/24 17:00 06/21/24 13:00 20 MG Pantoprazole Sodium 20 mg BID PO 06/20/24 22:00 06/21/24 11:15 20 MG Patient Own Medication 4 mg Q8HR PRN PO 06/20/24 17:30 06/21/24 11:37 4 MG Gabapentin 300 mg TID PO 06/20/24 22:00 Paroxetine HCl 30 mg DAILY@BREAKFAST PO 06/21/24 08:00 06/21/24 08:42 30 MG Paroxetine HCl 10 mg DAILY@DINNER PO 06/20/24 17:30 Valsartan 160 mg DAILY PO 06/21/24 10:00 06/21/24 11:15 160 MG Ondansetron HCl 4 mg Q8HP PRN PO 06/20/24 18:15 Sodium Chloride 1,000 ml @ 25 mls/hr Q24H IV 06/21/24 11:00 objective Physical Exam GENERAL APPEARANCE: Short-statured obese middle-aged white female Appears generally weak, in no apparent distress HEENT: Head normocephalic nontraumatic Eyes-EOMI, PERRLA, conjunctiva -pallor +2, sclera nonicteric ENT-no congestion in ear, nose and throat Tongue and mucous membranes wet NECK: Supple, trachea midline , carotid upstroke +2 No thyroid or lymph node enlargement, no use of accessory muscles, ROM at C-spine full CHEST: Symmetrical expansions, kyphoscoliosis hypoventilation at bases Breasts-deferred she has been RS: Clear breath sounds bilaterally except Reduced breath sounds at bilateral bases CVS: S1-S2 normal sinus no gallop no murmur : Abdomen soft, obese, bowel sounds present No focal tenderness, no masses no hernia Rectal:Deferred (Internal hemorrhoids present, stool OB positive as per exam at admission) :Deferred EXTs: Distal pulses +2, no rash, edema +2 affecting bilateral lower extremity capillary refill instant, Feels peripherally warm SKIN: No rash, no open wounds BOARD HANDLER: awake alert oriented 3, cognitive intact DTR +2, No focal motor/sensory deficit, gait wide laboratory and microbiology Laboratory Tests 06/21/24 04:50 Test 06/21/24 04:50 Range/Units Serum Glucose 98 74-106 mg/dL Problem List 1. acute on chronic iron deficiency anemia.................. Improving a. Suspect upper/lower GI bleeding b. Peptic ulcer disease-Sp Billroth type II c. Rectal bleeding from internal hemorrhoids 2. Hypovolemic hyponatremia.................................... Improved 3. Hypotension A. Hypovolemic hyponatremia B. Acute on chronic iron deficiency anemia C. Hypoproteinemia. D. Hypoalbuminemia. 4. Vitamin B12 deficiency anemia. 2' Diagnosis/Comorbidities 7. Chronic narcotic dependence. Assessment/Plan MEDICAL DECISION MAKING: Overall, the patient's general and hemodynamic condition appears to be clinically ill from development of Acute post hemorrhage chronic iron-deficiency anemia * Her hemoglobin as of today improved to 9 g% * Known history of intermittent GI bleeding due to hemorrhoids * There is also possibility of occult GI blood loss from upper GI tract * Patient is symptomatic for dizziness easy tiredness and hypotension * As a result patient is admitted to medical floor with telemetry * Patient is seen by Dr. Jones who recommends upper GI endoscopy Also recommends colonoscopy as outpatient Hypovolemic hyponatremia * Noted improvement in state of hypovolemic hyponatremia * Her serum sodium has improved to 137 meq/dL * By Lab exam SIADH is ruled out * Etiologic causes of hyponatremia seemed to be from poor oral intake, inadvertent effect of diuretics as well as hemodilutional * Known history of hypoproteinemia and hypoalbuminemia which Contributes to retention edema and hemodilution * Continued 0.9 normal saline infusion and diuretics if needed Hypoproteinemia/hypoalbuminemia * Etiologic cause seemed to be from poor intake, poor absorption of protein As well as inadequate formation of protein by liver * Interesting facts that she had received extensive cardio renal and hepatic evaluation 2D echo-EF 65% no valvular dysfunction Renal ultrasound-no intrinsic disease of the kidneys MRCP-dilated CBD without distal obstruction Re[place] [facility] [place] abnormality of common bile duct Uncontrolled hypertension * Noted uncontrolled blood pressure at 170 to 190s * Recommended low-salt 2 g diet * Resume valsartan * At clonidine as p.r.n. antihypertensive Treatment plans as of today 1. Continue hospital stay at medical floor with telemetry 2. Reduce IV fluid 0.9 normal saline at 25 mL/hour 3. Administer Lasix 10 mg 4. Resume valsartan 5. Clonidine as PRN antihypertensive 4. Informed consent for upper GI endoscopy by Dr. Garber 5. Monitor CBC electrolytes 6. Recommend high-protein diet 7. Updated patient-done The patient and/or family is well informed by me about 1. Clinical impression, treatment plans, side effects of medications, course of the disease And guarded prognosis 2. All patient's and concerns raised by patient or family are satisfactorily addressed by me Prognosis Guarded Dietary Evaluation Review Recommendations by RD: Dietary education by RD, Protein Supplementation Comments: High-protein diet - improves the state of hypoproteinemia and hypoalbuminemia Expected Outcomes/Goals: Recommended intentional weight loss Recommended protein supplements Plan discussed with: Patient Total Time (mins): 45 SAMINA SU MD Jun 21, 2024 13:32
--- NOTE | 2024-06-21 18:34 | DVHINCON2 ---
Date of service: Jun 21, [address] Nance Reason for Consultation Anemia History of Present Illness The patient is a 73-year-old female with a history of hypertension, anemia, history of peptic ulcer disease, history of BillrothII procedure, chronic lower extremity edema, hist of hyperproteinemia, admitted with anemia, shortness of breath, dyspnea on exertion. Patient denies any significant GI bleeding. She does have hemorrhoids and does have occasional bleeding. Her last endoscopy was 3-4 years ago and her last colonoscopy was 3-[address] Henderson. She denies any findings on colonoscopy or endoscopy at that time. She denies dysphagia, abdominal pain, hematemesis, weight loss, diarrhea, constipation, chest pain or shortness of breath. Patient denies any change in her medications. GI consultation was obtained for evaluation given her anemia. Patient is on iron supplementation. Patient also had workup for dilated common bile duct including ERCP at [facility]. Past Medical History Hypertension CHF Depression Anemia Past Surgical History Billroth II procedure Back surgery Family History: Cancer of small intestine G8 FATHER FH: colon cancer G8 MOTHER, FH: hypertension G8 MOTHER, Social History No tobacco, alcohol, recreational drug use Allergies: Coded Allergies: Butorphanol (Verified Allergy, Unknown, 12/19/18) Home Meds Active Scripts Valsartan (Valsartan) 160 Mg Tab, 0.5-1 TAB PO DAILYP PRN for 50 Days, #50 TAB 0.5 tab( 80 mg)PO daily for SBP >125-160 1 tab (160 mg) PO daily for SBP >161-180 Hold if SBP < 125, angioedema- call PMD Prov:SAMINA NANCE MD 06/04/24 Reported Medications Paroxetine HCl (Paroxetine Hydrochloride) 30 Mg Tab, for ANXIETY 05/30/24 Paroxetine Hydrochloride (Paroxetine Hydrochloride) 10 Mg Tab, 1 TAB PO DAILY for ANXIETY 05/30/24 Pantoprazole Sodium Sesquihydr (Protonix) 40 Mg Tab, 20 MG PO BID, #30 TAB 12/20/18 Ferrous Sulfate (Ferrous Sulfate) 325 Mg Tab, 325 MG PO BIDWM for 30 Days, MG 12/20/18 Ondansetron (Zofran) 4 Mg Tab, 4 MG PO Q6HPRN, MG 12/20/18 Metoclopramide Hcl (Reglan) 10 Mg Tab, 10 MG PO TID, TAB 12/20/18 Tizanidine Hydrochloride (Zanaflex) 4 Mg Cap, 1 CAP PO TID, #90 CAP 12/20/18 Gabapentin (Neurontin) 600 Mg Tab, 1 TAB PO TID, #90 TAB 3 Refills 12/20/18 Oxycodone Hcl (OXYCODONE HCL) 5 Mg Tb, 20 MG PO Q6HR 12/20/18 Current Medications Current Medications Medications (Trade) Dose Ordered Sig/Ran Route PRN Reason Start Time Stop Time Status Last Admin Metoclopramide HCl (Reglan Tablet) 10 mg TID PO 06/20/24 22:00 06/21/24 16:06 Pantoprazole Sodium (Protonix Tablet) 20 mg BID PO 06/20/24 22:00 06/21/24 11:15 Gabapentin (Neurontin Capsule) 300 mg TID PO 06/20/24 22:00 06/21/24 16:06 Paroxetine HCl (Paxil Tablet) 30 mg DAILY@BREAKFAST PO 06/21/24 08:00 06/21/24 08:42 Valsartan (Diovan) 160 mg DAILY PO 06/21/24 10:00 06/21/24 11:15 Sodium Chloride 1,000 ml @ 25 mls/hr Q24H IV 06/21/24 11:00 06/21/24 11:15 Review of Systems Constitutional: Weight gain no weight loss, denies fevers or chills Head: No neck pain n dizziness Cardiac: No chest pain or palpitations Pulmonary: No cough or wheeze some shortness of breath and dyspnea on exertion GI: See HPI : No dysuria or hematuria Endocrine: No diabetes or hypothyroidism Musculoskeletal: History of back surgery, history of arthritis, skin: No rashes or bruises Heme: History of anemia no history of malignancies Psych: Has depression no history of psychosis Vital Signs Vital Signs Date Time Temp Pulse Resp B/P (MAP) Pulse Ox O2 Delivery O2 Flow Rate FiO2 06/21/24 17:00 97.8 76 18 146/59 (88) 99 97.8 06/21/24 08:00 Room Air* 0 21 Physical Exam General: Alert and oriented x4 no distress HEENT: Normocephalic atraumatic extraocular muscles intact, pupils equal round react light accommodating oropharynx clear neck supple no JVD no lymphadenopathy Cardiac: Regular rate and rhythm no murmurs rubs or gallops Pulmonary: No wheezes rales or rhonchi clear to auscultation anteriorly Abdomen: Soft normoactive bowel sounds no tenderness to palpation Extremity: No clubbing or cyanosis, she does have trace edema Labs/Diagnostic Data Labs Test 06/21/24 06:30 06/21/24 04:50 06/21/24 02:35 06/20/24 18:52 Range/Units Stool Occult Blood Negative Negative Stool Occult Blood Sample #3 Negative White Blood Count 5.9 4.4-10.8 10^3/uL Red Blood Count 3.07 L 4.0-5.20 10^6/uL Hemoglobin 9.0 L 12.2-16.2 g/dL Hematocrit 27.3 L 36.0-46.0 % Mean Corpuscular Volume 89.0 80.0-100.0 fL Mean Corpuscular Hemoglobin 29.3 28.0-32.0 pg Mean Corpuscular Hemoglobin Concent 33.0 32.0-36.0 g/dL Red Cell Distribution Width 15.0 H 11.8-14.3 % Platelet Count 442 140-450 10^3/uL Mean Platelet Volume 6.3 L 6.9-10.8 fL Neutrophils (%) (Auto) 66.6 37.0-80.0 % Lymphocytes (%) (Auto) 16.8 10.0-50.0 % Monocytes (%) (Auto) 12.3 H 0.0-12.0 % Eosinophils (%) (Auto) 3.3 0.0-7.0 % Basophils (%) (Auto) 1.0 0.0-2.0 % Neutrophils # (Auto) 3.9 1.6-8.6 10 ^3/uL Lymphocytes # (Auto) 1.0 0.4-5.4 10 ^3/uL Monocytes # (Auto) 0.7 0-1.3 10 ^3/uL Eosinophils # (Auto) 0.2 0-0.8 10 ^3/uL Basophils # (Auto) 0.1 0-0.2 10 ^3/uL Nucleated Red Blood Cells 0.1 % Prothrombin Time 10.9 9.3-11.8 sec Prothrombin Time INR 1.03 0.9-1.15 Activated Partial Thromboplast Time 25.1 24.5-34.5 SEC Sodium Level 137 136-145 mmol/L Potassium Level 4.1 3.5-5.1 mmol/L Chloride Level 103 98-107 mmol/L Carbon Dioxide Level 24 20-31 mmol/L Anion Gap 10 5-15 Blood Urea Nitrogen 12 9-23 mg/dL Creatinine 0.48 L 0.550-1.02 mg/dL Glomerular Filtration Rate Calc 101 >90 mL/min BUN/Creatinine Ratio 25.0 H 10.0-20.0 Serum Glucose 98 74-106 mg/dL Calcium Level 8.3 L 8.7-10.4 mg/dL Total Bilirubin < 0.2 L 0.2-1.0 mg/dL Aspartate Amino Transferase (AST) 16 13-40 U/L Alanine Aminotransferase (ALT) 15 7-40 U/L Alkaline Phosphatase 117 H 46-116 U/L Total Protein 4.5 L 5.7-8.2 g/dL Albumin 3.0 L 3.2-4.8 g/dL Urine Color Colorless Yellow Urine Clarity Clear Clear Urine pH 6.5 5.0-9.0 Urine Specific [place] 1.007 1.001-1.035 Urine Protein Negative Negative Urine Ketones Negative Negative Urine Blood Negative Negative /uL Urine Nitrite Negative Negative Urine Bilirubin Negative Negative Urine Urobilinogen Normal Negative mg/dL Urine Leukocyte Esterase Negative Negative /uL Urine RBC <1 0 - 4 /hpf Urine WBC 2 0 - 5 /hpf Urine Squamous Epithelial Cells Few <5 /hpf Urine Bacteria None seen None Seen /hpf Urine Osmolality 273 mOsm/kg Urine Glucose Normal Normal mg/dL Serum Osmolality 275 L 278-298 mOsm/kg Phosphorus Level 4.3 2.4-5.1 mg/dL Magnesium Level 1.6 1.6-2.6 mg/dL Amylase Level 34 30-118 U/L Lipase 31 12-53 U/L Assessment Anemia, history of Billroth II procedure, Anemia-history of peptic ulcer disease however, likely malabsorption as well due to prior surgery Problems(with codes): (1) Exertional shortness of breath (2) Anasarca (3) Liver disease (4) Hypoproteinemia (5) Iron deficiency anemia (6) Vitamin B12 deficiency anemia Plan/Recommendation 1. Follow H&H 2. Transfuse to keep hemoglobin above seven 3. EGD tomorrow Risks benefits and alternatives were discussed with the patient 4. Consider outpatient follow-up and colonoscopy as indicated 5. Consider small-bowel workup 6. Consider non GI sources of anemia 7. Continue with proton pump inhibitor Plan discussed with: Patient CATRACHO GARCÍA MD Jun 21, 2024 18:34
--- NOTE | 2024-06-21 19:31 | DVH ---
EXAMINATION: XY L RIB X RAY INDICATION: Suspect fracture of 7th 8th ribs COMPARISON: None TECHNIQUE: Frontal view of the chest and <<>> views of the <<>> ribs history FINDINGS: No focal consolidation, pleural effusion or significant pneumothorax. Normal cardiomediastinal silhou ette. No displaced left rib fracture. IMPRESSION: 1. No acute cardiopulmonary disease. 2. No displaced left rib fracture.
[2024-06-21] MEDS: cloNIDine HCL 0.1 MG TAB PO ONE (20:47)
[2024-06-22] VITALS (10 sets, daily range): BP systolic 148–179; BP diastolic 67–96; PULSE 70–100; RESP 12–18; TEMP 97.6–98.7; O2SAT 95–99
[2024-06-22] MEDS: cloNIDine HCL 0.1 MG TAB PO ONE (04:45)
[2024-06-22 06:08] LABS: Basophils # (auto) 0 10 ^3/uL (0-0.2); Basophils % (auto) 0.9 % (0.0-2.0); Eosinophils # (auto) 0.2 10 ^3/uL (0-0.8); Eosinophils % (auto) 4.1 % (0.0-7.0); Hematocrit 26.2 % (36.0-46.0); Hemoglobin 8.6 g/dL (12.2-16.2); Lymphocytes # (auto) 0.8 10 ^3/uL (0.4-5.4); Lymphocytes % (auto) 15.2 % (10.0-50.0); Mean Corpuscular Hemoglobin 29.2 pg (28.0-32.0); Mean Corpuscular Hgb Conc. 32.8 g/dL (32.0-36.0); Mean Corpuscular Volume 89.1 fL (80.0-100.0); Monocytes # (auto) 0.8 10 ^3/uL (0-1.3); Monocytes % (auto) 14.6 % (0.0-12.0); Neutrophils # (auto) 3.6 10 ^3/uL (1.6-8.6); Neutrophils % (auto) 65.2 % (37.0-80.0); Platelet Count (auto) 407 10^3/uL (140-450); Red Blood Cells 2.94 10^6/uL (4.0-5.20); Red Cell Distribution Width 15.3 % (11.8-14.3); White Blood Cell 5.5 10^3/uL (4.4-10.8)
[2024-06-22 06:27] LABS: Alanine Aminotransferase 15 U/L (7-40); Alkaline Phosphatase 106 U/L (46-116); Anion Gap 6 (5-15); Aspartate Aminotransferase 13 U/L (13-40); BUN/Creatinine Ratio 25.6 (10.0-20.0); Blood Urea Nitrogen 10 mg/dL (9-23); Carbon Dioxide 27 mmol/L (20-31); Chloride 105 mmol/L (98-107); Potassium 4.2 mmol/L (3.5-5.1); Sodium 138 mmol/L (136-145)
[2024-06-22 06:28] LABS: Albumin 2.6 g/dL (3.2-4.8); Bilirubin, Total < 0.2 mg/dL (0.2-1.0); Calcium 8.5 mg/dL (8.7-10.4); Glucose 110 mg/dL (74-106); Total Protein 4.2 g/dL (5.7-8.2)
[2024-06-22] MEDS ORDERED: LABETALOL HCL 20 MG/4 ML VL IV PRN ×2 (11:45)
--- NOTE | 2024-06-22 12:31 | DVHPN2 ---
Progress Note - Dictate Has the PT tested + for MRSA If YES, has PT been informed?: No Medical Necessity Reason Pt with a Central, PICC or Fol: No Subjective The patient is currently being evaluated and treated for symptoms of acute on chronic iron-deficiency anemia * Patient reported symptoms of rectal bleeding from hemorrhoids * Her hemoglobin appears slightly improved to 9 g% * Seen by Dr. Jones * Patient is under close observation * Also currently being treated for hypovolemic hyponatremia * Labs are unremarkable for SIADH Overnight events are reviewed through medical chart and case discussion with patient's assigned RN while making rounds on patient on the day of service vital signs Vital Sign Date Time Temp Pulse Resp B/P (MAP) Pulse Ox O2 Delivery O2 Flow Rate FiO2 06/22/24 10:34 148/70 06/22/24 08:49 97.7 80 16 96 97.7 06/22/24 08:00 Room Air* 0 21 Total Intake and Output 06/21/24 06/21/24 06/22/24 15:00 23:00 07:00 Intake Total 1375 ml 0 ml Balance 1375 ml 0 ml medications Current Medications Medications Dose Ordered Sig/Ran Route Start Time Stop Time Status Last Admin Dose Admin Nitroglycerin 0.4 mg Q5MINP PRN SL 06/20/24 17:00 Morphine Sulfate 2 mg Q30M PRN IV 06/20/24 17:00 Metoclopramide HCl 10 mg TID PO 06/20/24 22:00 06/22/24 05:44 10 MG Oxycodone HCl 20 mg Q6HR PRN PO 06/20/24 17:00 06/22/24 12:06 20 MG Pantoprazole Sodium 20 mg BID PO 06/20/24 22:00 06/22/24 10:33 20 MG Patient Own Medication 4 mg Q8HR PRN PO 06/20/24 17:30 06/21/24 11:37 4 MG Gabapentin 300 mg TID PO 06/20/24 22:00 06/22/24 05:44 300 MG Paroxetine HCl 30 mg DAILY@BREAKFAST PO 06/21/24 08:00 06/22/24 07:48 30 MG Paroxetine HCl 10 mg DAILY@DINNER PO 06/20/24 17:30 06/21/24 18:57 10 MG Valsartan 160 mg DAILY PO 06/21/24 10:00 06/22/24 10:34 160 MG Ondansetron HCl 4 mg Q8HP PRN PO 06/20/24 18:15 Sodium Chloride 1,000 ml @ 10 mls/hr Q24H IV 06/22/24 11:45 UNV Labetalol HCl 10 mg Q4HPRN PRN IV 06/22/24 11:45 UNV Labetalol HCl 20 mg Q4HPRN PRN IV 06/22/24 11:45 UNV objective Physical Exam GENERAL APPEARANCE: Short-statured obese middle-aged white female Appears generally weak, in no apparent distress HEENT: Head normocephalic nontraumatic Eyes-EOMI, PERRLA, conjunctiva -pallor +2, sclera nonicteric ENT-no congestion in ear, nose and throat Tongue and mucous membranes wet NECK: Supple, trachea midline , carotid upstroke +2 No thyroid or lymph node enlargement, no use of accessory muscles, ROM at C-spine full CHEST: Symmetrical expansions, kyphoscoliosis hypoventilation at bases Breasts-deferred she has been RS: Clear breath sounds bilaterally except Reduced breath sounds at bilateral bases CVS: S1-S2 normal sinus no gallop no murmur : Abdomen soft, obese, bowel sounds present No focal tenderness, no masses no hernia Rectal:Deferred (Internal hemorrhoids present, stool OB positive as per exam at admission) :Deferred EXTs: Distal pulses +2, no rash, edema +2 affecting bilateral lower extremity capillary refill instant, Feels peripherally warm SKIN: No rash, no open wounds METEOROLOGICAL OBSERVER: awake alert oriented 3, cognitive intact DTR +2, No focal motor/sensory deficit, gait wide laboratory and microbiology Laboratory Tests 06/22/24 05:49 Test 06/22/24 05:49 Range/Units Serum Glucose 110 H 74-106 mg/dL CHEST RADIOGRAPH Indication: pre admit- CHF Technique: Single frontal view of the chest was obtained COMPARISON: None FINDINGS: Lines and Tubes: None Lungs: Left basilar subsegmental atelectasis. Pleura: No effusion. No pneumothorax. Cardiomediastinal contours: Unremarkable Bones: Unremarkable IMPRESSION: Left basilar subsegmental atelectasis. ATED BY: MARK CUEVAS MD DICTATED DATE/TIME: 06/21/24 0948 EXAMINATION: XY L RIB X RAY INDICATION: Suspect fracture of 7th 8th ribs COMPARISON: None TECHNIQUE: Frontal view of the chest and <<>> views of the <<>> ribs history FINDINGS: No focal consolidation, pleural effusion or significant pneumothorax. Normal cardiomediastinal silhouette. No displaced left rib fracture. IMPRESSION: 1. No acute cardiopulmonary disease. 2. No displaced left rib fracture. ATED BY: MARIAELENA MILLER MD DICTATED DATE/TIME: 06/21/241928 SIGNED BY: MARIAELENA MILLER MD SIGNED DATE/TIME: 06/21/241928 Problem List 1. acute on chronic iron deficiency anemia.................. Improving a. Suspect upper/lower GI bleeding b. Peptic ulcer disease-Sp Billroth type II c. Rectal bleeding from internal hemorrhoids 2. Hypovolemic hyponatremia.................................... Improved 3. Hypotension A. Hypovolemic hyponatremia B. Acute on chronic iron deficiency anemia C. Hypoproteinemia. D. Hypoalbuminemia. 4. Vitamin B12 deficiency anemia. 2' Diagnosis/Comorbidities 7. Chronic narcotic dependence. Assessment/Plan MEDICAL DECISION MAKING: Overall, the patient's general and hemodynamic condition appears to be clinically ill from development of Acute post hemorrhage chronic iron-deficiency anemia * Her hemoglobin as of today improved to 9 g% * Known history of intermittent GI bleeding due to hemorrhoids * There is also possibility of occult GI blood loss from upper GI tract * Patient is symptomatic for dizziness easy tiredness and hypotension * As a result patient is admitted to medical floor with telemetry * Patient is seen by Dr. Jones who recommends upper GI endoscopy Also recommends colonoscopy as outpatient Hypovolemic hyponatremia * Noted improvement in state of hypovolemic hyponatremia * Her serum sodium has improved to 137 meq/dL * By Lab exam SIADH is ruled out * Etiologic causes of hyponatremia seemed to be from poor oral intake, inadvertent effect of diuretics as well as hemodilutional * Known history of hypoproteinemia and hypoalbuminemia which Contributes to retention edema and hemodilution * Continued 0.9 normal saline infusion and diuretics if needed Hypoproteinemia/hypoalbuminemia * Etiologic cause seemed to be from poor intake, poor absorption of protein As well as inadequate formation of protein by liver * Interesting facts that she had received extensive cardio renal and hepatic evaluation 2D echo-EF 65% no valvular dysfunction Renal ultrasound-no intrinsic disease of the kidneys MRCP-dilated CBD without distal obstruction [place] [facility] [place] of common [place] Uncontrolled hypertension * Noted uncontrolled blood pressure at 170 to 190s * Recommended low-salt 2 g diet * Resume valsartan * At clonidine as p.r.n. antihypertensive Treatment plans as of today 1. Continue hospital stay at medical floor with telemetry 2. Reduce IV fluid 0.9 normal saline at 25 mL/hour 3. Administer Lasix 10 mg 4. Resume valsartan 5. Clonidine as PRN antihypertensive 4. Informed consent for upper GI endoscopy by Dr. Garber 5. Monitor CBC electrolytes 6. Recommend high-protein diet 7. Updated patient-done The patient and/or family is well informed by me about 1. Clinical impression, treatment plans, side effects of medications, course of the disease And guarded prognosis 2. All patient's and concerns raised by patient or family are satisfactorily addressed by me Dietary Evaluation Review Recommendations by RD: Dietary education by RD, Protein Supplementation Comments: High-protein diet - improves the state of hypoproteinemia and hypoalbuminemia Expected Outcomes/Goals: Recommended intentional weight loss Recommended protein supplements SAMINA SU MD Jun 22, 2024 12:30
[2024-06-22] MEDS: LABETALOL HCL 20 MG/4 ML VL IV ONE (13:06)
[2024-06-22] MEDS: SODIUM CHLORIDE 0.9% 1,000 ML IV SCH (13:06)
[2024-06-22] MEDS ORDERED: MIDAZOLAM HCL 2MG/2ML 2ml VIAL (1mg/ml) ONE (14:19)
[2024-06-22] MEDS ORDERED: fentaNYL CITRATE 100 MCG/2 ML VL ONE (14:19)
[2024-06-22] MEDS ORDERED: PROPOFOL 10 MG/ML 20 ML IV ONE (14:28)
[2024-06-22] MEDS ORDERED: LIDOCAINE VISCOUS 2% 15ML UD ONE (14:28)
[2024-06-22] MEDS ORDERED: DexAMETHasone SOD PHOS 10MG/1ML VIAL INJ ONE (14:28)
--- NOTE | 2024-06-22 15:23 | DVHNC2 ---
Procedure - EGD Note DATE OF PROCEDURE: 06/22/2024 PATIENT NAME: Alondra Angulo : 1950 TITLE OF PROCEDURE: Esophagogastroduodenoscopy with biopsy. WEB SERVICES MANAGER: Kaylin Almonte MD INDICATION: Acute on chronic anemia, without overt GIB ASA LEVEL: III MALLAMPATI SCORE: I ANESTHESIA: Monitored anesthesia protocol PROCEDURE IN DETAILS: After explanation of risks, benefits, and alternatives of the procedure to the patient, an informed consent was obtained. The patient was placed in left lateral position, connected to monitoring devices, including continuous pulse oximetry and electrocardiogram (EKG), then premedications were given. The Olympus gastroscope was inserted through the patients mouth and advanced under direct visualization to the esophagus, which was normal to the gastroesophageal (GE) junction. The scope was then advanced into the stomach. There was small amount of retained food contents in the stomach and the proximal small bowel. There was evidence of previous gastric surgery, anastomosis appeared normal. There was no active or old blood seen in the stomach. The scope was then advanced further into the small bowel. There were few superficial erosions of the few folds of the proximal small bowel. The scope was then withdrawn, the procedure concluded and the patient was transferred to the recovery area to recover in satisfactory condition. COMPLICATIONS: None and patient is medically stable. PROCEDURE TOLERANCE: Good ESTIMATED BLOOD LOSS (EBL): 0mL IMPRESSION: 1. There was small amount of retained food contents in the stomach and the proximal small bowel. 2. There was evidence of previous gastric surgery, anastomosis appeared normal. There was no evidence of strictures. 3. There were few superficial erosions of the few folds of the proximal small bowel. 4. No evidence of old blood or stigmata of bleeding. Sedation Start Time: see anesthesia note Procedure Start Time: see nursing note Procedure End Time: see nursing note RECOMMENDATIONS: 1. Follow-up pathology results. Bismuth based quadruple therapy rec, if H pylori comes back positive. 2. Proton pump inhibitor (PPI) daily. 3. Avoid nonsteroidal anti-inflammatory drugs (NSAIDs) and minimize narcotics/opiates. 4. Follow up with Dr Henderson of GI, had colonoscopy 3-4 yrs ago. Repeat colono scopy as out pt. 5. Iron and B12 supplementation recommended. SPECIMENS RETRIEVED: A. Gastric body Thank you for allowing me to participate in the care of this patient. KAYLIN ALMONTE MD Jun 22, 2024 15:23
[2024-06-22] MEDS: CYCLOBENZAPRINE HCL 10 MG TAB PO ONE (22:32)
[2024-06-23] VITALS (7 sets, daily range): BP systolic 105–198; BP diastolic 52–91; PULSE 78–96; RESP 13–19; TEMP 78–98.5; O2SAT 96–98
[2024-06-23 14:39] LABS: Basophils # (auto) 0 10 ^3/uL (0-0.2); Basophils % (auto) 0.2 % (0.0-2.0); Eosinophils # (auto) 0.1 10 ^3/uL (0-0.8); Eosinophils % (auto) 0.7 % (0.0-7.0); Hematocrit 28.3 % (36.0-46.0); Hemoglobin 9.1 g/dL (12.2-16.2); Lymphocytes # (auto) 1.5 10 ^3/uL (0.4-5.4); Lymphocytes % (auto) 17.3 % (10.0-50.0); Mean Corpuscular Hemoglobin 28.8 pg (28.0-32.0); Mean Corpuscular Volume 89.8 fL (80.0-100.0); Neutrophils % (auto) 69.8 % (37.0-80.0); Nucleated Red Blood Cells % 0.1 %; Platelet Count (auto) 470 10^3/uL (140-450); Red Blood Cells 3.15 10^6/uL (4.0-5.20); Red Cell Distribution Width 15.2 % (11.8-14.3); White Blood Cell 8.6 10^3/uL (4.4-10.8)
[2024-06-23 14:54] LABS: Alanine Aminotransferase 13 U/L (7-40); Albumin 2.8 g/dL (3.2-4.8); Alkaline Phosphatase 104 U/L (46-116); Anion Gap 8 (5-15); Aspartate Aminotransferase 14 U/L (13-40); BUN/Creatinine Ratio 23.3 (10.0-20.0); Bilirubin, Total < 0.2 mg/dL (0.2-1.0); Blood Urea Nitrogen 10 mg/dL (9-23); Calcium 8.7 mg/dL (8.7-10.4); Carbon Dioxide 24 mmol/L (20-31); Chloride 103 mmol/L (98-107); Glucose 101 mg/dL (74-106); Sodium 135 mmol/L (136-145); Total Protein 4.5 g/dL (5.7-8.2)
--- NOTE | 2024-06-24 00:14 | DVHPN2 ---
Progress Note - Dictate Date Seen: Jun 23, 2024 Has the PT tested + for MRSA If YES, has PT been informed?: No Medical Necessity Reason Pt with a Central, PICC or Fol: No Subjective The patient is currently being evaluated and treated for symptoms of acute on chronic iron-deficiency anemia * Patient reported symptoms of rectal bleeding from hemorrhoids * Her hemoglobin appears slightly improved to 9 g% * Seen by Dr. Jones * Patient is under close observation * Also currently being treated for hypovolemic hyponatremia * Labs are unremarkable for SIADH Overnight events are reviewed through medical chart and case discussion with patient's assigned RN while making rounds on patient on the day of service vital signs Vital Sign Date Time Temp Pulse Resp B/P (MAP) Pulse Ox O2 Delivery O2 Flow Rate FiO2 06/23/24 21:00 78.0 78 18 105/52 (69) 98 78.0 06/23/24 20:00 Room Air* 0 21 Total Intake and Output 06/23/24 06/23/24 06/24/24 15:00 23:00 07:00 Intake Total 560 ml Balance 560 ml medications Current Medications Medications Dose Ordered Sig/Ran Route Start Time Stop Time Status Last Admin Dose Admin Nitroglycerin 0.4 mg Q5MINP PRN SL 06/20/24 17:00 Morphine Sulfate 2 mg Q30M PRN IV 06/20/24 17:00 Metoclopramide HCl 10 mg TID PO 06/20/24 22:00 06/23/24 22:09 10 MG Oxycodone HCl 20 mg Q6HR PRN PO 06/20/24 17:00 06/23/24 22:10 20 MG Pantoprazole Sodium 20 mg BID PO 06/20/24 22:00 06/23/24 22:09 20 MG Patient Own Medication 4 mg Q8HR PRN PO 06/20/24 17:30 06/23/24 17:44 4 MG Gabapentin 300 mg TID PO 06/20/24 22:00 06/23/24 22:09 300 MG Paroxetine HCl 30 mg DAILY@BREAKFAST PO 06/21/24 08:00 06/23/24 10:04 30 MG Paroxetine HCl 10 mg DAILY@DINNER PO 06/20/24 17:30 06/23/24 17:41 10 MG Valsartan 160 mg DAILY PO 06/21/24 10:00 06/23/24 17:40 160 MG Ondansetron HCl 4 mg Q8HP PRN PO 06/20/24 18:15 Sodium Chloride 1,000 ml @ 10 mls/hr Q24H IV 06/22/24 11:45 06/23/24 11:45 10 MLS/HR Labetalol HCl 10 mg Q4HPRN PRN IV 06/22/24 11:45 Labetalol HCl 20 mg Q4HPRN PRN IV 06/22/24 11:45 objective Physical Exam GENERAL APPEARANCE: Short-statured obese middle-aged white female Appears generally weak, in no apparent distress HEENT: Head normocephalic nontraumatic Eyes-EOMI, PERRLA, conjunctiva -pallor +2, sclera nonicteric ENT-no congestion in ear, nose and throat Tongue and mucous membranes wet NECK: Supple, trachea midline , carotid upstroke +2 No thyroid or lymph node enlargement, no use of accessory muscles, ROM at C-spine full CHEST: Symmetrical expansions, kyphoscoliosis hypoventilation at bases Breasts-deferred she has been RS: Clear breath sounds bilaterally except Reduced breath sounds at bilateral bases CVS: S1-S2 normal sinus no gallop no murmur : Abdomen soft, obese, bowel sounds present No focal tenderness, no masses no hernia Rectal:Deferred (Internal hemorrhoids present, stool OB positive as per exam at admission) :Deferred EXTs: Distal pulses +2, no rash, edema +2 affecting bilateral lower extremity capillary refill instant, Feels peripherally warm SKIN: No rash, no open wounds PSYCH COORDINATOR: awake alert oriented 3, cognitive intact DTR +2, No focal motor/sensory deficit, gait wide laboratory and microbiology Laboratory Tests 06/23/24 14:10 Test 06/23/24 14:10 Range/Units Serum Glucose 101 74-106 mg/dL Problem List 1. acute on chronic iron deficiency anemia.................. Improving a. Suspect upper/lower GI bleeding b. Peptic ulcer disease-Sp Billroth type II c. Rectal bleeding from internal hemorrhoids 2. Hypovolemic hyponatremia.................................... Improved 3. Hypotension A. Hypovolemic hyponatremia B. Acute on chronic iron deficiency anemia C. Hypoproteinemia. D. Hypoalbuminemia. 4. Vitamin B12 deficiency anemia. 2' Diagnosis/Comorbidities 7. Chronic narcotic dependence. Assessment/Plan MEDICAL DECISION MAKING: Overall, the patient's general and hemodynamic condition appears to be clinically ill from development of Acute post hemorrhage chronic iron-deficiency anemia * Her hemoglobin as of today improved to 9 g% * Known history of intermittent GI bleeding due to hemorrhoids * There is also possibility of occult GI blood loss from upper GI tract * Patient is symptomatic for dizziness easy tiredness and hypotension * As a result patient is admitted to medical floor with telemetry * Patient is seen by Dr. Jones who recommends upper GI endoscopy Also recommends colonoscopy as outpatient Hypovolemic hyponatremia * Noted improvement in state of hypovolemic hyponatremia * Her serum sodium has improved to 137 meq/dL * By Lab exam SIADH is ruled out * Etiologic causes of hyponatremia seemed to be from poor oral intake, inadvertent effect of diuretics as well as hemodilutional * Known history of hypoproteinemia and hypoalbuminemia which Contributes to retention edema and hemodilution * Continued 0.9 normal saline infusion and diuretics if needed Hypoproteinemia/hypoalbuminemia * Etiologic cause seemed to be from poor intake, poor absorption of protein As well as inadequate formation of protein by liver * Interesting facts that she had received extensive cardio renal and hepatic evaluation 2D echo-EF 65% no valvular dysfunction Renal ultrasound-no intrinsic disease of the kidneys MRCP-dilated CBD without distal obstruction Received ERCP at [facility] [place]-no abnormality of common bile duct Uncontrolled hypertension * Noted uncontrolled blood pressure at 170 to 190s * Recommended low-salt 2 g diet * Resume valsartan * At clonidine as p.r.n. antihypertensive Treatment plans as of today 1. Continue hospital stay at medical floor with telemetry 2. Reduce IV fluid 0.9 normal saline at 25 mL/hour 3. Administer Lasix 10 mg 4. Resume valsartan 5. Clonidine as PRN antihypertensive 4. Informed consent for upper GI endoscopy by Dr. Garber 5. Monitor CBC electrolytes 6. Recommend high-protein diet 7. Updated patient-done The patient and/or family is well informed by me about 1. Clinical impression, treatment plans, side effects of medications, course of the disease And guarded prognosis 2. All patient's and concerns raised by patient or family are satisfactorily addressed by me Dietary Evaluation Review Recommendations by RD: Dietary education by RD, Protein Supplementation Comments: High-protein diet - improves the state of hypoproteinemia and hypoalbuminemia Expected Outcomes/Goals: Recommended intentional weight loss Recommended protein supplements SAMINA SU MD Jun 24, 2024 00:14
[2024-06-24 01:00] VITALS: BP 147/69; PULSE 80; RESP 18; TEMP 98.5; O2SAT 96
[2024-06-24 05:00] VITALS: BP 138/87; PULSE 87; RESP 17; TEMP 98; O2SAT 96
[2024-06-24 08:00] VITALS: PULSE 69; PULSE 82; RESP 16; O2SAT 96
[2024-06-24 09:00] VITALS: BP 132/83; PULSE 82; RESP 16; TEMP 98.2; O2SAT 96
--- NOTE | 2024-06-24 09:43 | DVHPN2 ---
Progress Note - Dictate Date Seen: Jun 24, 2024 Has the PT tested + for MRSA If YES, has PT been informed?: No Medical Necessity Reason Pt with a Central, PICC or Fol: No Subjective The patient is currently being evaluated and treated for symptoms of acute on chronic iron-deficiency anemia * Patient reported symptoms of rectal bleeding from hemorrhoids * Her hemoglobin appears slightly improved to 9 g% * Seen by Dr. Jones * Patient is under close observation * Also currently being treated for hypovolemic hyponatremia * Labs are unremarkable for SIADH Overnight events are reviewed through medical chart and case discussion with patient's assigned RN while making rounds on patient on the day of service vital signs Vital Sign Date Time Temp Pulse Resp B/P (MAP) Pulse Ox O2 Delivery O2 Flow Rate FiO2 06/24/24 08:56 132/82 06/24/24 05:00 98.0 87 17 96 98.0 06/23/24 20:00 Room Air* 0 21 Total Intake and Output 06/23/24 06/23/24 06/24/24 15:00 23:00 07:00 Intake Total 560 ml 350 ml Balance 560 ml 350 ml medications Current Medications Medications Dose Ordered Sig/Ran Route Start Time Stop Time Status Last Admin Dose Admin Nitroglycerin 0.4 mg Q5MINP PRN SL 06/20/24 17:00 Morphine Sulfate 2 mg Q30M PRN IV 06/20/24 17:00 Metoclopramide HCl 10 mg TID PO 06/20/24 22:00 06/24/24 05:42 10 MG Oxycodone HCl 20 mg Q6HR PRN PO 06/20/24 17:00 06/24/24 05:07 20 MG Pantoprazole Sodium 20 mg BID PO 06/20/24 22:00 06/24/24 08:55 20 MG Patient Own Medication 4 mg Q8HR PRN PO 06/20/24 17:30 06/24/24 02:29 4 MG Gabapentin 300 mg TID PO 06/20/24 22:00 06/24/24 05:42 300 MG Paroxetine HCl 30 mg DAILY@BREAKFAST PO 06/21/24 08:00 06/24/24 08:55 30 MG Paroxetine HCl 10 mg DAILY@DINNER PO 06/20/24 17:30 06/23/24 17:41 10 MG Valsartan 160 mg DAILY PO 06/21/24 10:00 06/24/24 08:56 160 MG Ondansetron HCl 4 mg Q8HP PRN PO 06/20/24 18:15 Sodium Chloride 1,000 ml @ 10 mls/hr Q24H IV 06/22/24 11:45 06/23/24 11:45 10 MLS/HR Labetalol HCl 10 mg Q4HPRN PRN IV 06/22/24 11:45 Labetalol HCl 20 mg Q4HPRN PRN IV 06/22/24 11:45 objective Physical Exam GENERAL APPEARANCE: Short-statured obese middle-aged white female Appears generally weak, in no apparent distress HEENT: Head normocephalic nontraumatic Eyes-EOMI, PERRLA, conjunctiva -pallor +2, sclera nonicteric ENT-no congestion in ear, nose and throat Tongue and mucous membranes wet NECK: Supple, trachea midline , carotid upstroke +2 No thyroid or lymph node enlargement, no use of accessory muscles, ROM at C-spine full CHEST: Symmetrical expansions, kyphoscoliosis hypoventilation at bases Breasts-deferred she has been RS: Clear breath sounds bilaterally except Reduced breath sounds at bilateral bases CVS: S1-S2 normal sinus no gallop no murmur : Abdomen soft, obese, bowel sounds present No focal tenderness, no masses no hernia Rectal:Deferred (Internal hemorrhoids present, stool OB positive as per exam at admission) :Deferred EXTs: Distal pulses +2, no rash, edema +2 affecting bilateral lower extremity capillary refill instant, Feels peripherally warm SKIN: No rash, no open wounds PLANT PROPAGATOR: awake alert oriented 3, cognitive intact DTR +2, No focal motor/sensory deficit, gait wide laboratory and microbiology Laboratory Tests 06/23/24 14:10 Test 06/23/24 14:10 Range/Units Serum Glucose 101 74-106 mg/dL Problem List 1. acute on chronic iron deficiency anemia.................. Improving a. Suspect upper/lower GI bleeding b. Peptic ulcer disease-Sp Billroth type II c. Rectal bleeding from internal hemorrhoids 2. Hypovolemic hyponatremia.................................... Improved 3. Hypotension A. Hypovolemic hyponatremia B. Acute on chronic iron deficiency anemia C. Hypoproteinemia. D. Hypoalbuminemia. 4. Vitamin B12 deficiency anemia. 2' Diagnosis/Comorbidities 7. Chronic narcotic dependence. Assessment/Plan MEDICAL DECISION MAKING: Overall, the patient's general and hemodynamic condition appears to be clinically ill from development of Acute post hemorrhage chronic iron-deficiency anemia * Her hemoglobin as of today improved to 9 g% * Known history of intermittent GI bleeding due to hemorrhoids * There is also possibility of occult GI blood loss from upper GI tract * Patient is symptomatic for dizziness easy tiredness and hypotension * As a result patient is admitted to medical floor with telemetry * Patient is seen by Dr. Jones who recommends upper GI endoscopy Also recommends colonoscopy as outpatient Hypovolemic hyponatremia * Noted improvement in state of hypovolemic hyponatremia * Her serum sodium has improved to 137 meq/dL * By Lab exam SIADH is ruled out * Etiologic causes of hyponatremia seemed to be from poor oral intake, inadvertent effect of diuretics as well as hemodilutional * Known history of hypoproteinemia and hypoalbuminemia which Contributes to retention edema and hemodilution * Continued 0.9 normal saline infusion and diuretics if needed Hypoproteinemia/hypoalbuminemia * Etiologic cause seemed to be from poor intake, poor absorption of protein As well as inadequate formation of protein by liver * Interesting facts that she had received extensive cardio renal and hepatic evaluation 2D echo-EF 65% no valvular dysfunction Renal ultrasound-no intrinsic disease of the kidneys MRCP-dilated CBD without distal obstruction Received ERCP at [facility] [place]-no abnormality of common bile duct Uncontrolled hypertension * Noted uncontrolled blood pressure at 170 to 190s * Recommended low-salt 2 g diet * Resume valsartan * At clonidine as p.r.n. antihypertensive Treatment plans as of today 1. Continue hospital stay at medical floor with telemetry 2. Reduce IV fluid 0.9 normal saline at 25 mL/hour 3. Administer Lasix 10 mg 4. Resume valsartan 5. Clonidine as PRN antihypertensive 4. Informed consent for upper GI endoscopy by Dr. Garber 5. Monitor CBC electrolytes 6. Recommend high-protein diet 7. Updated patient-done The patient and/or family is well informed by me about 1. Clinical impression, treatment plans, side effects of medications, course of the disease And guarded prognosis 2. All patient's and concerns raised by patient or family are satisfactorily addressed by me Dietary Evaluation Review Recommendations by RD: Dietary education by RD, Protein Supplementation Comments: High-protein diet - improves the state of hypoproteinemia and hypoalbuminemia Expected Outcomes/Goals: Recommended intentional weight loss Recommended protein supplements SAMINA SU MD Jun 24, 2024 09:43
[2024-06-24 10:49] VITALS: BP 132/83; PULSE 82; RESP 16; TEMP 98.2; O2SAT 96
== END 2024-06-24 12:17 | disposition home or self-care (01) | DRG 394 ==
LOC: EAST 15:22 → TELE-EAST 18:31 → TELE-E-ADS 06-21 17:04
PROVIDERS: ADMIT Specialist; ATTEND Specialist
PROC: 05H933Z Insertion of Infusion Device into Right Brachial Vein, Percutaneous Approach (ICD-10-PCS; 2024-06-22)
PROC: B54MZZA Ultrasonography of Right Upper Extremity Veins, Guidance (ICD-10-PCS; 2024-06-22)
PROC: 0DB68ZX Excision of Stomach, Via Natural or Artificial Opening Endoscopic, Diagnostic (ICD-10-PCS; principal; 2024-06-22 14:32)
DX: K64.8 Other hemorrhoids (principal); E87.1 Hypo-osmolality and hyponatremia; F11.20 Opioid dependence, uncomplicated; K27.9 Peptic ulcer, site unspecified, unspecified as acute or chronic, without hemorrhage or perforation; D50.9 Iron deficiency anemia, unspecified; E77.8 Other disorders of glycoprotein metabolism; E86.1 Hypovolemia; E88.09 Other disorders of plasma-protein metabolism, not elsewhere classified; K76.9 Liver disease, unspecified; I50.9 Heart failure, unspecified; I11.0 Hypertensive heart disease with heart failure; G89.29 Other chronic pain; Z96.652 Presence of left artificial knee joint; Z82.49 Family history of ischemic heart disease and other diseases of the circulatory system; Z80.0 Family history of malignant neoplasm of digestive organs
CPT/HCPCS: 36415; 71045; 71046; 71101; 80053; 81001; 82150; 82270; 83690; 83735; 83930; 83935; 84100; 85025; 85610; 85730; 86850; 86900; 86901; 87081; G0378; J1100; J2250; J2704